=== PATIENT | female | born 1960 | race Two or more races ===

== ENCOUNTER 2021-02-17 18:20 | Emergency (ER) | payer SELFPAY ==
[~2021-02-17] VITALS: Ht 154.9 cm; Wt 90.7 kg
[2021-02-17] MEDS ORDERED: KETOROLAC TROMETH 30 MG/ML 1ML VIAL IV ONE (20:30)
[2021-02-17 20:53] LABS: Basophils # (auto) 0 10 ^3/uL (0-0.2); Basophils % (auto) 0.7 % (0.0-2.0); Eosinophils # (auto) 0.2 10 ^3/uL (0-0.8); Eosinophils % (auto) 3.2 % (0.0-7.0); Hematocrit 40.2 % (36.0-46.0); Hemoglobin 13.8 g/dL (12.2-16.2); Lymphocytes # (auto) 2.3 10 ^3/uL (0.4-5.4); Lymphocytes % (auto) 43.5 % (10.0-50.0); Mean Corpuscular Hgb Conc. 34.2 g/dL (32.0-36.0); Mean Corpuscular Volume 96.5 fL (80.0-100.0); Monocytes # (auto) 0.2 10 ^3/uL (0-1.3); Monocytes % (auto) 4.5 % (0.0-12.0); Neutrophils # (auto) 2.6 10 ^3/uL (1.6-8.6); Neutrophils % (auto) 48.1 % (37.0-80.0); Nucleated Red Blood Cells % 0.1 %; Platelet Count (auto) 274 10^3/uL (140-450); Red Blood Cells 4.16 10^6/uL (4.0-5.20); Red Cell Distribution Width 12.5 % (11.8-14.3); White Blood Cell 5.4 10^3/uL (4.4-10.8)
[2021-02-17 21:18] LABS: Potassium 4.2 mmol/L (3.5-5.1)
[2021-02-17 21:25] LABS: Albumin 3.5 g/dL (3.4-5.0); BUN/Creatinine Ratio 19.2; Bilirubin, Total 0.6 mg/dL (0.2-1.0); Calcium 9.5 mg/dL (8.5-10.1); Total Protein 7.1 g/dL (6.4-8.2)
[2021-02-17 22:30] VITALS: BP 141/75
== END 2021-02-17 22:36 | disposition home or self-care (01) ==
LOC: EDBD 18:20 → ER 18:20
DX: R07.89 Other chest pain (principal); M62.838 Other muscle spasm; E11.9 Type 2 diabetes mellitus without complications; I10 Essential (primary) hypertension; Z87.891 Personal history of nicotine dependence; V49.9XXA Car occupant (driver) (passenger) injured in unspecified traffic accident, initial encounter; Y93.89 Activity, other specified; Y92.89 Other specified places as the place of occurrence of the external cause; Y99.8 Other external cause status
CPT/HCPCS: 36415; 70450; 71046; 72100; 72125; 80053; 85025; 96374; 99285; J1885

== ENCOUNTER 2025-05-21 12:32 | Inpatient (IN) | payer BC, OTHER ==
[~2025-05-21] VITALS: Ht 160 cm; Wt 73.2 kg
--- NOTE | 2025-05-21 13:19 | ED.PDOC ---
GI ASSESSMENT HPI Comments 64 y.o female with PMHx of HTN, DM, TIA, and asthma, presents to the ED for a chief complaint of diffused abdominal pain associated with diarrhea that started 6 days ago. Patient reports pain is sharp, constant, and rating a 7/10 on the pain scale. Patient was seen at PCP 3 days ago, was prescribed a 3 day antibiotic regime, Zofran and Imodium but states no symptom relief. Patient denies any melena, bloody stool, fever, chills, nausea, vomiting. Patient denies any substance, alcohol or tobacco use. Upon ED arrival, patient's blood pressure read 75/47. Chief Complaint: Abdominal Pain Time Seen by MD: 13:00 Primary Care Provider: RENNY Villegas Notes: Nurses Notes, Medications, Allergies Allergies: Coded Allergies: NO KNOWN ALLERGIES (Unverified , 02/17/21) Information Source: Patient Mode of Arrival: Ambulatory Timing: Days (6) Duration: Since onset Quality: Sharp Vomitus: None Stool: Loose, Watery Severity: Moderate Recent: None Recent Hx of: None Pain Location: Diffuse Modifying Factors: Nothing Associated sign and symptoms: Diarrhea, Abdominal Pain Past Medical History PAST MEDICAL HISTORY: Asthma, DM, HTN, TIA Surgical History: Cholecystectomy Surgical History (Other): right shoulder and bilateral knee replacement WINDOW CASER 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: No 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 History Family History Family History: Family hx of Cancer (father of colon cancer ) Social History Smoker: Quit Greater Than 1 Year Alcohol: Denies ETOH Use Drugs: Denies Drug Use Lives In: Home Constitutional: denies: chills, diaphoresis, fatigue, fever, malaise, sweats, weakness, others EENTM: denies: blurred vision, double vision, ear bleeding, ear discharge, ear drainage, ear pain, ear ringing, eye pain, eye redness, hearing loss, mouth pain, mouth swelling, nasal discharge, nose bleeding, nose congestion, nose pain, photophobia, tearing, throat pain, throat swelling, voice changes, others Respiratory: denies: cough, hemoptysis, orthopnea, SOB at rest, shortness of breath, SOB with excertion, stridor, wheezing, others Cardiovascular: denies: chest pain, dizzy spells, diaphoresis, Dyspnea on exertion, edema, irregular heart beat, left arm pain, lightheadedness, palpitations, PND, syncope, others Gastrointestinal: reports: abdominal pain, diarrhea; denies: abdomen distended, blood streaked bowels, constipated, dysphagia, difficulty swallowing, hematemesis, melena, nausea, poor appetite, poor fluid intake, rectal bleeding, rectal pain, vomiting, others Genitourinary: denies: abnormal vagina bleeding, burning, dyspareunia, dysuria, flank pain, frequency, hematuria, incontinence, pain, , vagina dis charge, urgency, others Neurological: denies: dizziness, fainting, headache, left sided numbness, left sided weakness, numbness, paresthesia, pre-existing deficit, right sided numbness, right sided weakness, seizure, speech problems, tingling, tremors, weakness, others Musculoskeletal: denies: back pain, gout, joint pain, joint swelling, muscle pain, muscle stiffness, neck pain, others Integumetry: denies: bruises, change in color, change in hair/nails, dryness, laceration, lesions, lumps, rash, wounds, others Allergic/Immunocompromised: denies: Difficulty Healing, Frequent Infections, Hives, Itching, others Hematologic/Lymphatic: denies: anemia, blood clots, easy bleeding, easy bruising, swollen glands, others Endocrine: denies: excessive hunger, excessive sweating, excessive thirst, excessive urination, flushing, intolerance to cold, intolerance to heat, unexplained weight gain, unexplained weight loss, others Psychiatric: denies: anxiety, bipolar disorder, depression, hopeless, panic disorder, schizophrenia, sleepless, suicidal, others All Other Systems: Reviewed and Negative Physical Exam General Appearance: Moderate Distress HEENT: Normal ENT Inspection, Pharynx Normal, TMs Normal Neck: Full Range of Motion, Non-Tender, Normal, Normal Inspection Respiratory: Chest Non-Tender, Lungs Clear, No Accessory Muscle Use, No Respiratory Distress, Normal Breath Sounds Cardiovascular: No Edema, No JVD, No Murmur, No Gallop, Normal Peripheral Pulses, Regular Rate/Rhythm Breast Exam: Deferred Gastrointestinal: Diffuse, No Organomegaly, No Pulsatile Mass, Normal Bowel Sounds, Soft, Tenderness Genitalia: Deferred Pelvic: Deferred Rectal: Deferred Extremities: No calf tenderness, Normal capillary refill, No pedal edema Musculoskeletal : Apperance: Normal Neurologic: Alert, loan supervisor II-XII nml as Tested, No Motor Deficits, Normal Affect, Normal Mood, No Sensory Deficits Cerebellar Function: Normal Reflexes: Normal Skin: Dry, Normal Color, Warm Lymphatic: No Adenopathy Was a procedure done? Was a procedure done?: No GI differential Dx Differential Diagnosis: Esophagitis, Gastroenteritis, Inflammatory BD, Dehydration, Electrolyte Imbalance, Food Poisoning, Parasitic, Viral X-Ray, Labs, Meds, VS Vital Signs Date Time Temp Pulse Resp B/P (MAP) Pulse Ox O2 Delivery O2 Flow Rate FiO2 05/21/25 16:34 73 12 150/70 05/21/25 16:04 70 13 150/70 05/21/25 16:00 72 05/21/25 15:31 72 17 145/59 (87) 100 05/21/25 13:47 79 13 94 Room Air* 0 21 05/21/25 13:46 98.4 82 17 123/53 (76) 92 98.4 05/21/25 12:47 86 05/21/25 12:40 98.3 87 18 76/43 (54) 97 98.3 75/47 (56) Lab Test 05/21/25 13:43 Range/Units White Blood Count 6.0 4.4-10.8 10^3/uL Red Blood Count 4.63 4.0-5.20 10^6/uL Hemoglobin 13.9 12.2-16.2 g/dL Hematocrit 41.8 36.0-46.0 % Mean Corpuscular Volume 90.3 80.0-100.0 fL Mean Corpuscular Hemoglobin 30.1 28.0-32.0 pg Mean Corpuscular Hemoglobin Concent 33.3 32.0-36.0 g/dL Red Cell Distribution Width 13.9 11.8-14.3 % Platelet Count 274 140-450 10^3/uL Mean Platelet Volume 8.0 6.9-10.8 fL Neutrophils (%) (Auto) 72.3 37.0-80.0 % Lymphocytes (%) (Auto) 20.1 10.0-50.0 % Monocytes (%) (Auto) 5.0 0.0-12.0 % Eosinophils (%) (Auto) 2.3 0.0-7.0 % Basophils (%) (Auto) 0.3 0.0-2.0 % Neutrophils # (Auto) 4.3 1.6-8.6 10 ^3/uL Lymphocytes # (Auto) 1.2 0.4-5.4 10 ^3/uL Monocytes # (Auto) 0.3 0-1.3 10 ^3/uL Eosinophils # (Auto) 0.1 0-0.8 10 ^3/uL Basophils # (Auto) 0 0-0.2 10 ^3/uL Nucleated Red Blood Cells 0.0 % Sodium Level 135 L 136-145 mmol/L Potassium Level 3.6 3.5-5.1 mmol/L Chloride Level 101 98-107 mmol/L Carbon Dioxide Level 26 20-31 mmol/L Anion Gap 8 5-15 Blood Urea Nitrogen 32 H 9-23 mg/dL Creatinine 1.51 H 0.550-1.02 mg/dL Glomerular Filtration Rate Calc 38 >90 mL/min BUN/Creatinine Ratio 21.2 H 10.0-20.0 Serum Glucose 187 H 74-106 mg/dL Lactic Acid Level 0.9 0.4-2.0 mmol/L Calcium Level 9.6 8.7-10.4 mg/dL Total Bilirubin 0.8 0.2-1.0 mg/dL Aspartate Amino Transferase (AST) 51 H 13-40 U/L Alanine Aminotransferase (ALT) 58 H 7-40 U/L Alkaline Phosphatase 156 H 46-116 U/L Total Protein 7.9 5.7-8.2 g/dL Albumin 4.8 3.2-4.8 g/dL Lipase 35 12-53 U/L Current Medications Medications (Trade) Dose Ordered Sig/Chaitanya Route Start Time Stop Time Status Last Admin Sodium Chloride 1,000 ml @ 1,000 mls/hr Q1H ONCE IVB 05/21/25 13:15 05/21/25 14:14 DC 05/21/25 13:38 Morphine Sulfate 4 mg ONCE ONCE IV 05/21/25 16:00 05/21/25 16:01 DC 05/21/25 16:04 Ondansetron HCl (Zofran) 4 mg ONCE ONCE IV 05/21/25 16:00 05/21/25 16:01 DC 05/21/25 16:04 CAT scan of the abdomen and pelvis shows: IMPRESSION: Dilated CBD measuring 11 mm with abrupt termination near the periampullary region as well as stranding surrounding the pancreatic head. Recommend GI consultation and MRCP to further evaluate. Stranding surrounding the pancreatic head. Correlate for pancreatitis. Cholecystectomy. Colonic diverticular disease. A 2 mm nonobstructing right renal calculus. The patient was given morphine 4 mg IV push for the pain The patient was given Zofran 4 mg IV push for the nausea The patient was given 1 L bolus of normal saline The lipase is within normal limits The lactic acid level is negative The patient's CBC shows no sign of any abnormalities The BUN is 32 and a creatinine of 1.51 The patient is being admitted at this time Images Reviewed?: Images reviewed and evaluated by me Time of 1ST Reevaluation: 13:19 Reevaluation 1ST: Unchanged Patient Education/Counseling: Diagnosis, Treatment, Prognosis Family Education/Counseling: No Family Present SEPSIS Sepsis Screen Date sepsis recognized/suspect: May 21, 2025 Time Sepsis recognized/suspect: 1239 Recent Procedure: No On Antibiotic Therapy: No Respiratory Rate >20: No Heart Rate >90: No Temp<36 C (96.8 F) or >38.3 C: No SBP <90 or MAP <65 mmHG: Yes New Acute Mental Status Change: No Is the patient on CPAP, BIPAP,: No Physician Orders Urinalysis (05/21/25 13:14) Ct Ab Pel Wo Con-No Oral Or Iv (05/21/25 13:14) Heplock Iv (05/21/25 13:14) City Maintenance Manager (05/21/25 13:14) Blood Pressure (05/21/25 13:14) Pulse Oximetry (05/21/25 13:14) Electrocardigram (05/21/25 13:14) Blood Culture (05/21/25 13:16) Vital Signs Date Time Temp Pulse Resp B/P (MAP) Pulse Ox O2 Delivery O2 Flow Rate FiO2 05/21/25 16:34 73 12 150/70 05/21/25 16:04 70 13 150/70 05/21/25 16:00 72 05/21/25 15:31 72 17 145/59 (87) 100 05/21/25 13:47 79 13 94 Room Air* 0 21 05/21/25 13:46 98.4 82 17 123/53 (76) 92 98.4 05/21/25 12:47 86 05/21/25 12:40 98.3 87 18 76/43 (54) 97 98.3 75/47 (56) Laboratory Tests Test 05/21/25 13:43 Lactic Acid Level 0.9 mmol/L (0.4-2.0) White Blood Count 6.0 10^3/uL (4.4-10.8) Medications Medications Dose Ordered Sig/Chaitanya Route Start Time Stop Time Status Last Admin Dose Admin Morphine Sulfate 4 mg ONCE ONCE IV 05/21/25 16:00 05/21/25 16:01 DC 05/21/25 16:04 Ondansetron HCl 4 mg ONCE ONCE IV 05/21/25 16:00 05/21/25 16:01 DC 05/21/25 16:04 Sodium Chloride 1,000 ml @ 1,000 mls/hr Q1H ONCE IVB 05/21/25 13:15 05/21/25 14:14 DC 05/21/25 13:38 Departure 1 Departure Time of Disposition: 17:45 Impression: Primary Impression: Intractable abdominal pain Disposition: ADMITTED INPATIENT Admit to: Med Surg Condition: Fair Critical Care Note Critical Care Time?: No Stability Stability form required: Yes Unstable for transfer: ED Physician Assesment (Clinical assesment) Heart Score Heart Score: Heart Score Response (Comments) Value History N/A 0 EKG N/A 0 Age N/A 0 Risk Factors N/A 0 Troponin N/A 0 Total 0 I personally scribed for CYNTHIA LOJA MD ([email or web address]) on 05/21/25 at 13:19. Elec tronically submitted by Mary Summers ([facility]). CYNTHIA LOJA MD May 21, 2025 13:19
[2025-05-21] MEDS: SODIUM CHLORIDE 0.9% 1,000 ML IVB ONE (13:38)
[2025-05-21 13:47] VITALS: PULSE 79; RESP 13; O2SAT 94
[2025-05-21 14:07] LABS: Hematocrit 41.8 % (36.0-46.0); Hemoglobin 13.9 g/dL (12.2-16.2); Mean Corpuscular Hemoglobin 30.1 pg (28.0-32.0); Mean Corpuscular Volume 90.3 fL (80.0-100.0); Nucleated Red Blood Cells % 0.0 %
[2025-05-21 14:21] LABS: Albumin 4.8 g/dL (3.2-4.8); Anion Gap 8 (5-15); BUN/Creatinine Ratio 21.2 (10.0-20.0); Calcium 9.6 mg/dL (8.7-10.4); Carbon Dioxide 26 mmol/L (20-31); Chloride 101 mmol/L (98-107); Lipase 35 U/L (12-53); Potassium 3.6 mmol/L (3.5-5.1); Total Protein 7.9 g/dL (5.7-8.2)
[2025-05-21 14:22] LABS: Bilirubin, Total 0.8 mg/dL (0.2-1.0)
[2025-05-21 14:24] LABS: Alanine Aminotransferase 58 U/L (7-40); Alkaline Phosphatase 156 U/L (46-116); Blood Urea Nitrogen 32 mg/dL (9-23); Glucose 187 mg/dL (74-106); Sodium 135 mmol/L (136-145)
--- NOTE | 2025-05-21 15:35 | DVH ---
Indication: PAIN Technique: CT axial images of the abdomen and pelvis are obtained without contrast. Coronal and sagit frances reformats were obtained. Radiation Dose Information: CTDI volume is 16.17 mGy. Dose-length product is 900.52 mGy*cm Comparison: None FINDINGS: There is limited interpretation of the abdomen and pelvis without administration of intravenous contr ast. Lung bases demonstrate no pleural effusion. Adrenal glands, spleen unremarkable in shape. Mild stranding surrounding the pancreatic head.m cholec ystectomy dilated common bile duct measuring 11 mm. Liver unremarkable in shape. No hydronephrosis. Nonobstructing right renal calculus measuring 2 mm. Small hiatal hernia. Stomach partially distended. Small bowel loops are normal in caliber. Colonic diverticular disease. Moderate volume stool in the colon. Normal appendix. Abdominal aortic atherosclerotic disease. Bladder partially distended. No free pelvic fluid. No ingu inal lymphadenopathy. [id number] bilateral sacroiliac degenerative joint disease. Posterior intrapedicular fixation of the L3 and L4 vertebral bodies. Moderate to advanced thoracolu mbar degenerative disc disease. Left lower quadrant pain pump device. IMPRESSION: Dilated CBD measuring 11 mm with abrupt termination near the periampullary region as well as strandin g surrounding the pancreatic head. Recommend GI consultation and MRCP to further evaluate. Stranding surrounding the pancreatic head. Correlate for pancreatitis. Cholecystectomy. Colonic diverticular disease. A 2 mm nonobstructing right renal calculus. Other findings as described.
[2025-05-21] MEDS: ONDANSETRON HCL 4 MG/2 ML VIAL IV ONE (16:04)
[2025-05-21] MEDS: MORPHINE SULFATE 4 MG/ML SYR/VIAL IV ONE (16:04)
--- NOTE | 2025-05-21 18:35 | ECG ---
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
[2025-05-21] MEDS ORDERED: DEXTROSE (50%) 50ML SYRG IV PRN (19:30)
[2025-05-21 20:00] VITALS: O2SAT 94
[2025-05-21] MEDS: SODIUM CHLORIDE 0.9% 1,000 ML IV ONE (20:00)
[2025-05-21] MEDS: MORPHINE SULFATE INJ 2 MG/ml SYRG IV PRN (21:52)
[2025-05-21] MEDS: ONDANSETRON HCL 4 MG/2 ML VIAL IV PRN (21:52)
[2025-05-21 23:51] VITALS: BP 154/72; PULSE 73; RESP 18; TEMP 97.5; O2SAT 99
[2025-05-21] MEDS: ACCU-CHEK COMFORT CURVE STRIP VI SCH (23:54)
[2025-05-21] MEDS: InsuLIN REG 1unit/0.01ml Soln (100units/ml) SC SCH (23:55)
[2025-05-22] VITALS (8 sets, daily range): BP systolic 111–154; BP diastolic 51–78; PULSE 60–78; RESP 14–18; TEMP 96.7–98.4; O2SAT 94–99
[2025-05-22] MEDS ORDERED: HYDR25TA5 GT (03:12)
[2025-05-22] MEDS ORDERED: HYDR-4798 PO (03:12)
[2025-05-22] MEDS ORDERED: HYDR25TA87 PO (03:12)
[2025-05-22] MEDS ORDERED: LISI-275 PO (03:12)
[2025-05-22] MEDS ORDERED: INSU100I28 IJ (03:12)
[2025-05-22] MEDS ORDERED: INSU100I33 SC (03:12)
--- NOTE | 2025-05-22 03:58 | DVHHP2 ---
History of Present Illness Reason for Visit: Abdominal pain History of Present Illness 64-year-old female presents for evaluation of abdominal pain. Patient reports a six day history of diffuse abdominal pain. She states being seen by her primary care provider three days ago and was given antibiotics in medication for the anahi n. She states his symptoms continued. She reports diarrhea with nausea and vomiting. Past Medical History Hypertension, diabetes mellitus, asthma Past Surgical History Cholecystectomy, bilateral knee replacement Family History Cancer Smoke: Quit ALCOHOL: none Drugs: None Lives: with Family Review of Systems Review of Systems Review of systems are currently negative otherwise addressed in HPI. Allergies: Coded Allergies: NO KNOWN ALLERGIES (Unverified , 02/17/21) Medications Current Medications Medications Dose Ordered Sig/Chaitanya Route Start Time Stop Time Status Last Admin Dose Admin Diagnostic Test (Pha) 1 strip Q6HR 05/22/25 00:00 05/21/25 23:54 1 STRIP Insulin Human Regular Q6HR SC 05/22/25 00:00 05/21/25 23:55 2 UNITS Dextrose 50 ml UD PRN IV 05/21/25 19:30 Ondansetron HCl 4 mg Q4HP PRN IV 05/21/25 19:30 05/21/25 21:52 4 MG Morphine Sulfate 2 mg Q4HPRN PRN IV 05/21/25 19:30 05/21/25 21:52 2 MG Exam Vital Signs Vital Signs Date Time Temp Pulse Resp B/P (MAP) Pulse Ox O2 Delivery O2 Flow Rate FiO2 05/22/25 00:51 97.3 78 18 154/72 (99) 98 97.3 05/21/25 23:51 Nasal Cannula* 2 28 Exam Gen: 64-year-old female in mild distress Skin: Warm, dry, normal color and texture, no rash. HEENT: Normocephalic atraumatic, mucous membranes moist and pink. Neck: Cervical and supraclavicular nodes normal without enlargement, trachea is midline, thyroid gland is normal without masses. Pulmonary: Clear to auscultation and percussion bilaterally. Cardiac: Regular rate and rhythm. No murmur Abdomen: Soft, diffuse tenderness, nondistended, bowel sounds present all 4 quadrants, no guarding, no rigidity, no organomegaly. Extremities: No cyanosis, clubbing, no edema Neuro: Cranial nerves II through XII grossly intact, normal affect and speech, no focal motor deficits. Labs/Xrays ORDERING PHYSICIAN: CYNTHIA LOJA MD PROCEDURE(s): ABPL - CT AB PEL WO CON-NO ORAL OR IV REASON: PAIN ORDER NUMBER(s): [id number], ACCESSION NUMBER(s): [id number] Indication: PAIN Technique: CT axial images of the abdomen and pelvis are obtained without contrast. Coronal and sagittal reformats were obtained. Radiation Dose Information: CTDI volume is 16.17 mGy. Dose-length product is 900.52 mGy*cm Comparison: None FINDINGS: There is limited interpretation of the abdomen and pelvis without administration of intravenous contrast. Lung bases demonstrate no pleural effusion. Adrenal glands, spleen unremarkable in shape. Mild stranding surrounding the pancreatic head.m cholecystectomy dilated common bile duct measuring 11 mm. Liver unremarkable in shape. No hydronephrosis. Nonobstructing right renal calculus measuring 2 mm. Small hiatal hernia. Stomach partially distended. Small bowel loops are normal in caliber. Colonic diverticular disease. Moderate volume stool in the colon. Normal appendix. Abdominal aortic atherosclerotic disease. Bladder partially distended. No free pelvic fluid. No inguinal lymphadenopathy. [id number] bilateral sacroiliac degenerative joint disease. Posterior intrapedicular fixation of the L3 and L4 vertebral bodies. Moderate to advanced thoracolumbar degenerative disc disease. Left lower quadrant pain pump device. IMPRESSION: Dilated CBD measuring 11 mm with abrupt termination near the periampullary region as well as stranding surrounding the pancreatic head. Recommend GI consultation and MRCP to further evaluate. Stranding surrounding the pancreatic head. Correlate for pancreatitis. Cholecystectomy. Colonic diverticular disease. A 2 mm nonobstructing right renal calculus. Other findings as described. Labs Test 05/21/25 13:43 Range/Units White Blood Count 6.0 4.4-10.8 10^3/uL Red Blood Count 4.63 4.0-5.20 10^6/uL Hemoglobin 13.9 12.2-16.2 g/dL Hematocrit 41.8 36.0-46.0 % Mean Corpuscular Volume 90.3 80.0-100.0 fL Mean Corpuscular Hemoglobin 30.1 28.0-32.0 pg Mean Corpuscular Hemoglobin Concent 33.3 32.0-36.0 g/dL Red Cell Distribution Width 13.9 11.8-14.3 % Platelet Count 274 140-450 10^3/uL Mean Platelet Volume 8.0 6.9-10.8 fL Neutrophils (%) (Auto) 72.3 37.0-80.0 % Lymphocytes (%) (Auto) 20.1 10.0-50.0 % Monocytes (%) (Auto) 5.0 0.0-12.0 % Eosinophils (%) (Auto) 2.3 0.0-7.0 % Basophils (%) (Auto) 0.3 0.0-2.0 % Neutrophils # (Auto) 4.3 1.6-8.6 10 ^3/uL Lymphocytes # (Auto) 1.2 0.4-5.4 10 ^3/uL Monocytes # (Auto) 0.3 0-1.3 10 ^3/uL Eosinophils # (Auto) 0.1 0-0.8 10 ^3/uL Basophils # (Auto) 0 0-0.2 10 ^3/uL Nucleated Red Blood Cells 0.0 % Sodium Level 135 L 136-145 mmol/L Potassium Level 3.6 3.5-5.1 mmol/L Chloride Level 101 98-107 mmol/L Carbon Dioxide Level 26 20-31 mmol/L Anion Gap 8 5-15 Blood Urea Nitrogen 32 H 9-23 mg/dL Creatinine 1.51 H 0.550-1.02 mg/dL Glomerular Filtration Rate Calc 38 >90 mL/min BUN/Creatinine Ratio 21.2 H 10.0-20.0 Serum Glucose 187 H 74-106 mg/dL Lactic Acid Level 0.9 0.4-2.0 mmol/L Calcium Level 9.6 8.7-10.4 mg/dL Total Bilirubin 0.8 0.2-1.0 mg/dL Aspartate Amino Transferase (AST) 51 H 13-40 U/L Alanine Aminotransferase (ALT) 58 H 7-40 U/L Alkaline Phosphatase 156 H 46-116 U/L Total Protein 7.9 5.7-8.2 g/dL Albumin 4.8 3.2-4.8 g/dL Lipase 35 12-53 U/L SEPSIS Sepsis Screen Date sepsis recognized/suspect: May 21, 2025 Time Sepsis recognized/suspect: 1828 Recent Procedure: No On Antibiotic Therapy: No Respiratory Rate >20: No Heart Rate >90: No Temp<36 C (96.8 F) or >38.3 C: No SBP <90 or MAP <65 mmHG: No New Acute Mental Status Change: No Is the patient on CPAP, BIPAP,: No Physician Orders * Dietary Consult (05/22/25 03:04) Vital Signs Date Time Temp Pulse Resp B/P (MAP) Pulse Ox O2 Delivery O2 Flow Rate FiO2 05/22/25 00:51 97.3 78 18 154/72 (99) 98 97.3 05/21/25 23:51 73 18 99 Nasal Cannula* 2 28 05/21/25 23:51 97.5 73 18 154/72 (99) 99 97.5 05/21/25 22:22 74 13 156/63 05/21/25 22:00 71 11 156/63 (94) 100 05/21/25 21:52 70 13 137/54 05/21/25 20:00 98.2 73 13 158/69 (98) 99 98.2 Medications Medications Dose Ordered Sig/Chaitanya Route Start Time Stop Time Status Last Admin Dose Admin Diagnostic Test (Pha) 1 strip Q6HR 05/22/25 00:00 05/21/25 23:54 1 STRIP Insulin Human Regular Q6HR SC 05/22/25 00:00 05/21/25 23:55 2 UNITS Morphine Sulfate 2 mg Q4HPRN PRN IV 05/21/25 19:30 05/21/25 21:52 2 MG Morphine Sulfate 4 mg ONCE ONCE IV 05/21/25 16:00 05/21/25 16:01 DC 05/21/25 16:04 4 MG Ondansetron HCl 4 mg ONCE ONCE IV 05/21/25 16:00 05/21/25 16:01 DC 05/21/25 16:04 4 MG Ondansetron HCl 4 mg Q4HP PRN IV 05/21/25 19:30 05/21/25 21:52 4 MG Sodium Chloride 1,000 ml @ 75 mls/hr [id number] ONCE IV 05/21/25 19:30 05/22/25 08:49 05/21/25 20:00 75 MLS/HR Assessment/Plan Assessment/Plan Assessment Acute abdominal pain Transaminitis Acute kidney injury Hypertension Diabetes mellitus Plan Admit the patient to [facility] to the hospitalist GI consult MRCP pending Pain management Maintenance IV fluids Continue treatment per orders. Plan discussed with: Patient My Orders Orders - MARY JANE MAHONEY Procedure Category Date Status Time Sodium Chloride 0.9% PHA 05/21/25 In Process 19:30 Mrcp Mri MRI 05/21/25 Logged 19:21 Glucose Blood PHA 05/22/25 In Process (Accu-Chek Comfort 00:00 Insulin R (Human) PHA 05/22/25 In Process (Insulin R) 00:00 Dextrose 50% Syringe PHA 05/21/25 In Process 19:30 Admit ADMIT 05/21/25 Transmitted 19:21 Ondansetron Hcl PHA 05/21/25 In Process (Zofran) 19:30 Complete Blood Count LAB 05/22/25 Logged 04:00 Comprehensive LAB 05/22/25 Logged Metabolic Panel 04:00 Npo (Nothing By DIET 05/22/25 Transmitted Mouth) Diet Breakfast Condition: Stable LAURENT 05/21/25 In Process 19:21 Bedrest With Bathroom LAURENT 05/21/25 In Process Privileg 19:21 Morphine Sulfate PHA 05/21/25 In Process Injection 19:30 * Gi Dvh Band Aid Machine Operator CONS 05/21/25 Transmitted 19:21 * Dietary Consult CONS 05/22/25 Transmitted 03:04 Date of Service: May 21, 2025 Billing Provider: MARY JANE MAHONEY Common Visit Codes: [id number] INP/OBS CARE (MOD) MARY JANE MAHONEY May 22, 2025 03:58
[2025-05-22 06:50] LABS: Hematocrit 36.5 % (36.0-46.0); Hemoglobin 12.5 g/dL (12.2-16.2); Mean Corpuscular Hemoglobin 30.4 pg (28.0-32.0); Mean Corpuscular Volume 89.1 fL (80.0-100.0); Nucleated Red Blood Cells % 0.1 %
[2025-05-22 07:12] LABS: Calcium 9.5 mg/dL (8.7-10.4); Carbon Dioxide 28 mmol/L (20-31); Chloride 106 mmol/L (98-107)
[2025-05-22 07:13] LABS: Albumin 4.0 g/dL (3.2-4.8); Anion Gap 7 (5-15); BUN/Creatinine Ratio 24.7 (10.0-20.0); Bilirubin, Total 0.6 mg/dL (0.2-1.0); Potassium 3.7 mmol/L (3.5-5.1); Sodium 141 mmol/L (136-145); Total Protein 6.6 g/dL (5.7-8.2)
[2025-05-22 07:14] LABS: Alanine Aminotransferase 43 U/L (7-40); Alkaline Phosphatase 132 U/L (46-116); Blood Urea Nitrogen 24 mg/dL (9-23); Glucose 118 mg/dL (74-106)
--- NOTE | 2025-05-22 12:37 | DVHINCON2 ---
GI Consult Consult Note GI consult note Date of Consultation: 05/22/2025 Chief Complaint: Abdominal pain Referring Physician: Olaf VEGA H&P: 64-year-old female presents to the ER with complains of abdominal pain, which is in a generalized area, started one-week ago and getting worse at this time. Patient was seen by PCP and started on antibiotics, Zofran and Imodium which did not help with the symptoms. Patient also has nausea vomiting, denies hematemesis. Having watery stool about 4-5 episodes every day. No melena or red blood in stool Patient is status post cholecystectomy 12-14 years ago at [facility] Diagnosed with factor five Leiden but not on any blood thinners Patient has chronic back pain has a pain pump for Dilaudid, and has concerns if this needs to be turned off for the MRI Past Medical History: Hypertension, diabetes mellitus, asthma Past Surgical History: Cholecystectomy, bilateral knee replacement Social History: NO smoking, drinking ETOH and use of illegal drugs. Family History: Noncontributory Review of Systems: Constitutional: no fever, chill, weight loss HEENT: no eye pain, no hearing loss, no oral lesion, no scleral icterus Heart: no chest pain, no chest pressure Lung: no cough, no dyspnea with exertion Abdomen: see HPI Physical exam: General: NAD, AAOX3 Chest: lung mack clear to auscultation Heart: RRR, no murmur Abdomen: Moderate generalized abdominal tenderness to palpation, +BS Labs: Labs Test 05/22/25 12:08 05/22/25 06:20 05/21/25 13:43 Range/Units POC Glucose 151 H 70-106 mg/dl White Blood Count 5.8 4.4-10.8 10^3/uL Red Blood Count 4.10 4.0-5.20 10^6/uL Hemoglobin 12.5 12.2-16.2 g/dL Hematocrit 36.5 # 36.0-46.0 % Mean Corpuscular Volume 89.1 80.0-100.0 fL Mean Corpuscular Hemoglobin 30.4 28.0-32.0 pg Mean Corpuscular Hemoglobin Concent 34.2 32.0-36.0 g/dL Red Cell Distribution Width 13.6 11.8-14.3 % Platelet Count 241 140-450 10^3/uL Mean Platelet Volume 7.6 6.9-10.8 fL Neutrophils (%) (Auto) 53.2 37.0-80.0 % Lymphocytes (%) (Auto) 35.9 10.0-50.0 % Monocytes (%) (Auto) 6.9 0.0-12.0 % Eosinophils (%) (Auto) 3.7 0.0-7.0 % Basophils (%) (Auto) 0.3 0.0-2.0 % Neutrophils # (Auto) 3.1 1.6-8.6 10 ^3/uL Lymphocytes # (Auto) 2.1 0.4-5.4 10 ^3/uL Monocytes # (Auto) 0.4 0-1.3 10 ^3/uL Eosinophils # (Auto) 0.2 0-0.8 10 ^3/uL Basophils # (Auto) 0 0-0.2 10 ^3/uL Nucleated Red Blood Cells 0.1 % Sodium Level 141 # 136-145 mmol/L Potassium Level 3.7 3.5-5.1 mmol/L Chloride Level 106 98-107 mmol/L Carbon Dioxide Level 28 20-31 mmol/L Anion Gap 7 5-15 Blood Urea Nitrogen 24 H 9-23 mg/dL Creatinine 0.97 # 0.550-1.02 mg/dL Glomerular Filtration Rate Calc 65 >90 mL/min BUN/Creatinine Ratio 24.7 H 10.0-20.0 Serum Glucose 118 H 74-106 mg/dL Calcium Level 9.5 8.7-10.4 mg/dL Total Bilirubin 0.6 0.2-1.0 mg/dL Aspartate Amino Transferase (AST) 40 13-40 U/L Alanine Aminotransferase (ALT) 43 H 7-40 U/L Alkaline Phosphatase 132 H 46-116 U/L Total Protein 6.6 5.7-8.2 g/dL Albumin 4.0 3.2-4.8 g/dL Lactic Acid Level 0.9 0.4-2.0 mmol/L Lipase 35 12-53 U/L Imaging: CT abdomen pelvis IMPRESSION: Dilated CBD measuring 11 mm with abrupt termination near the periampullary region as well as stranding surrounding the pancreatic head. Recommend GI consultation and MRCP to further evaluate. Stranding surrounding the pancreatic head. Correlate for pancreatitis. Cholecystectomy. Colonic diverticular disease. A 2 mm nonobstructing right renal calculus. Other findings as described. Assessment: Abdominal pain Dilated CBD Diarrhea Plan: Discussed with Dr. Valderrama MRI MRCP discussed extensively with patient was reluctant to do this test, patient we will go ahead and attempt to do the MRCP Hepatitis panel, CA 19-9 Clear liquid diet after MRI completed Stool studies Discussed plan with patient and RN Thank you for this consult Date of Service: May 22, 2025 Billing Provider: MARGARET COCHRAN Common Visit Codes: CONSULT ONLY Consultation Codes: [id number] CONSULT <60MIN MARGARET COCHRAN May 22, 2025 12:37
--- NOTE | 2025-05-22 13:20 | DVH ---
MRI MRCP MRIMagnetic Resonance Magnetic Resonance HISTORY: abd. pain COMPARISON: 05/21 PROCEDURE: Multiplanar multisequence MRI images were obtained of the abdomen without intravenous cont rast Additional MIPS were obtained of the biliary system. FINDINGS: Bile ducts: -Intrahepatic ducts: Mildly-dilated. -Extrahepatic ducts: Mildly-dilated. -Common bile duct: 1.3 cm -Filling defects: Small filling defect in the distal CBD could be sludge or a small stone. -Stricture: None. Gallbladder: Absent. Pancreas: Pancreatic duct: Mild ductal dilatation. Lesions: None. Liver: Signal intensity: Homogenous. Contour: Smooth. Size: Normal. Lesions: No focal liver lesion. ADDITIONAL FINDINGS: Lung base: Normal. Pancreas: Unremarkable however the pancreatic head is indistinct. Spleen:Normal. Bowel: Normal. Normal appendix. Adrenal glands:Normal. Kidneys and ureters:Normal. Lymph nodes:Normal. Peritoneum:Normal. Vessels: Normal. Abdominal wall: Normal. Bone: No aggressive bone lesions. Lumbar spinal hardware is seen. IMPRESSION: Small filling defect in the distal CBD could be sludge or a small stone (choledocholithiasis). Clinic al correlation recommended.
--- NOTE | 2025-05-22 18:20 | DVHPN2 ---
Subjective Minimal pain this morning Reviewed: H&P, Labs Changes from previous H/P or p: No Changes Objective Vitals Vital Signs Date Time Temp Pulse Resp B/P (MAP) Pulse Ox O2 Delivery O2 Flow Rate FiO2 05/22/25 17:00 98.4 61 16 128/51 (76) 97 98.4 05/22/25 08:00 Nasal Cannula* 2 28 Intake/Output Intake and Output 05/22/25 07:00 Intake Total 1225 ml Balance 1225 ml Intake Oral 0 ml IV Total 1225 ml # Voids 1 General Appearance: Alert, Oriented X3, Cooperative HEENT: Atraumatic Lungs: Clear to auscultation Cardiovascular: Regular rate, Normal S1, Normal S2 Abdomen: Normal bowel sounds Medications Current Medications Medications Dose Ordered Sig/Chaitanya Route Start Time Stop Time Status Last Admin Dose Admin Diagnostic Test (Pha) 1 strip Q6HR 05/22/25 00:00 05/22/25 17:33 1 STRIP Insulin Human Regular Q6HR SC 05/22/25 00:00 05/22/25 12:16 2 UNITS Dextrose 50 ml UD PRN IV 05/21/25 19:30 Ondansetron HCl 4 mg Q4HP PRN IV 05/21/25 19:30 05/21/25 21:52 4 MG Hydromorphone HCl 1 mg Q2HPRN PRN IV 05/22/25 14:45 Laboratory Results Laboratory Tests 05/22/25 06:20 Chemistry Test 05/22/25 06:20 Albumin 4.0 g/dL (3.2-4.8) Calcium Level 9.5 mg/dL (8.7-10.4) Total Protein 6.6 g/dL (5.7-8.2) LFT Test 05/22/25 06:20 Alanine Aminotransferase (ALT) 43 U/L (7-40) H Alkaline Phosphatase 132 U/L (46-116) H Aspartate Amino Transferase (AST) 40 U/L (13-40) Total Bilirubin 0.6 mg/dL (0.2-1.0) Microbiology Microbiology Date/Time Source Procedure Growth Status 05/22/25 12:30 Stool Stool Culture - Preliminary Resulted 05/22/25 12:30 Stool Shiga Toxin I & II - Final Resulted 05/21/25 13:43 Blood Blood Culture - Preliminary NO GROWTH AFTER 24 HOURS OF INCUBATION. Resulted Assessment/Plan Assessment/Plan Acute abdominal pain Transaminitis Acute kidney injury Hypertension Diabetes mellitus Going for MRCP IV dilaudid GI consulted IVF Plan discussed with: Patient My Orders Orders - KIARA BAXTER MD Procedure Category Date Status Time Hydromorphone PHA 05/22/25 In Process Injection (Dilaudid 14:45 Date of Service: May 22, 2025 Billing Provider: KIARA BAXTER MD Common Visit Codes: [id number] INP/OBS CARE(HIGH) KIARA BAXTER MD May 22, 2025 18:20
[2025-05-22] MEDS: HYDROmorphone HCL 2 MG/ML VL/or syr IV PRN (19:05)
[2025-05-23] VITALS (7 sets, daily range): BP systolic 111–152; BP diastolic 41–76; PULSE 65–98; RESP 12–18; TEMP 96.5–98.1; O2SAT 90–99
[2025-05-23 11:07] LABS: Hepatitis A Total Antibody Positive (Negative); Hepatitis B Surface Antigen Negative (Negative); Hepatitis C Antibody Negative (Negative)
--- NOTE | 2025-05-23 15:08 | DVHPN2 ---
Progress Note - Dictate Date Seen: May 23, 2025 Medical Necessity Reason Pt with a Central, PICC or Fol: No Subjective No new complaints Patient is currently NPO and would like to drink some liquids vital signs Vital Sign Date Time Temp Pulse Resp B/P (MAP) Pulse Ox O2 Delivery O2 Flow Rate FiO2 05/23/25 12:12 75 14 127/44 05/23/25 09:00 97.8 98 97.8 05/23/25 08:00 Nasal Cannula* 2 28 Total Intake and Output 05/22/25 05/22/25 05/23/25 15:00 23:00 07:00 Intake Total 350 ml 0 ml Balance 350 ml 0 ml medications Current Medications Medications Dose Ordered Sig/Chaitanya Route Start Time Stop Time Status Last Admin Dose Admin Diagnostic Test (Pha) 1 strip Q6HR 05/22/25 00:00 05/23/25 11:26 1 STRIP Insulin Human Regular Q6HR SC 05/22/25 00:00 05/22/25 12:16 2 UNITS Dextrose 50 ml UD PRN IV 05/21/25 19:30 Ondansetron HCl 4 mg Q4HP PRN IV 05/21/25 19:30 05/21/25 21:52 4 MG Hydromorphone HCl 1 mg Q2HPRN PRN IV 05/22/25 14:45 05/23/25 11:42 1 MG objective General Appearance: Alert, Oriented X3, Cooperative HEENT: Atraumatic Lungs: Clear to auscultation Cardiovascular: Regular rate, Normal S1, Normal S2 Abdomen: Normal bowel sounds laboratory and microbiology Laboratory Tests 05/22/25 06:20 Test 05/22/25 06:20 Range/Units Serum Glucose 118 H 74-106 mg/dL Problems(with codes): (1) Elevated liver enzymes (2) Choledocholithiasis (3) Intractable abdominal pain Prognosis Plan Start clear liquid diet advance to full liquid Patient is awaiting transfer to higher level of care for ERCP with CBD stone extraction Monitor labs in a.m. Dietary Evaluation Review Comments: CCHO-60 texture as tolerated diet Expected Outcomes/Goals: controlled DM, free from GI symptoms, gradual wt loss Plan discussed with: Patient, Other (Nurse) EVE WEST MD May 23, 2025 15:08
[2025-05-23] MEDS: SODIUM CHLORIDE 0.9% 1,000 ML IV SCH (15:51)
--- NOTE | 2025-05-23 17:04 | DVHPN2 ---
Subjective Minimal pain this morning Reviewed: H&P, Labs Changes from previous H/P or p: No Changes Objective Vitals Vital Signs Date Time Temp Pulse Resp B/P (MAP) Pulse Ox O2 Delivery O2 Flow Rate FiO2 05/23/25 16:27 79 20 124/52 05/23/25 13:00 98.0 93 98.0 05/23/25 08:00 Nasal Cannula* 2 28 Intake/Output Intake and Output 05/23/25 07:00 Intake Total 350 ml Balance 350 ml Intake Oral 350 ml # Voids 6 General Appearance: Alert, Oriented X3, Cooperative HEENT: Atraumatic Lungs: Clear to auscultation Cardiovascular: Regular rate, Normal S1, Normal S2 Abdomen: Normal bowel sounds Medications Current Medications Medications Dose Ordered Sig/Chaitanya Route Start Time Stop Time Status Last Admin Dose Admin Diagnostic Test (Pha) 1 strip Q6HR 05/22/25 00:00 05/23/25 11:26 1 STRIP Insulin Human Regular Q6HR SC 05/22/25 00:00 05/22/25 12:16 2 UNITS Dextrose 50 ml UD PRN IV 05/21/25 19:30 Ondansetron HCl 4 mg Q4HP PRN IV 05/21/25 19:30 05/21/25 21:52 4 MG Hydromorphone HCl 1 mg Q2HPRN PRN IV 05/22/25 14:45 05/23/25 16:27 1 MG Sodium Chloride 1,000 ml @ 125 mls/hr Q8H IV 05/23/25 15:30 05/23/25 15:51 125 MLS/HR Laboratory Results Laboratory Tests 05/22/25 06:20 Microbiology Microbiology Date/Time Source Procedure Growth Status 05/22/25 12:30 Stool Stool Culture - Preliminary Resulted 05/22/25 12:30 Stool Shiga Toxin I & II - Final Resulted 05/21/25 13:43 Blood Blood Culture - Preliminary NO GROWTH AFTER 48 HOURS OF INCUBATION. Resulted Assessment/Plan Assessment/Plan Acute abdominal pain Transaminitis Acute kidney injury Hypertension Diabetes mellitus MRCP showed choledocholithiasis IV dilaudid GI consulted>recommended higher level of care for ERCP IVF Accepted at [facility], pending bed Plan discussed with: Patient My Orders Orders - KIARA BAXTER MD Procedure Category Date Status Time Sodium Chloride 0.9% PHA 05/23/25 In Process 15:30 Discharge DISCHARGE 05/23/25 Transmitted 15:20 Date of Service: May 23, 2025 Billing Provider: KIARA BAXTER MD Common Visit Codes: [id number] INP/OBS CARE(HIGH) KIARA BAXTER MD May 23, 2025 17:04
[2025-05-24 01:00] VITALS: BP 124/61; PULSE 75; RESP 18; TEMP 98.4; O2SAT 92
[2025-05-24 02:03] VITALS: BP 156/72; PULSE 83; RESP 16
== END 2025-05-24 02:25 | disposition short-term general hospital (02) | DRG 444 ==
LOC: ER 12:32 → OVERFLOW 19:21 → EAST 23:20
PROVIDERS: ADMIT Hospitalist; ATTEND Hospitalist
DX: K80.50 Calculus of bile duct without cholangitis or cholecystitis without obstruction (principal); N17.0 Acute kidney failure with tubular necrosis; E11.9 Type 2 diabetes mellitus without complications; I10 Essential (primary) hypertension; J45.909 Unspecified asthma, uncomplicated; Z96.653 Presence of artificial knee joint, bilateral; Z87.891 Personal history of nicotine dependence; Z86.73 Personal history of transient ischemic attack (TIA), and cerebral infarction without residual deficits; Z80.0 Family history of malignant neoplasm of digestive organs; Z90.49 Acquired absence of other specified parts of digestive tract
CPT/HCPCS: 36415; 74176; 74181; 80053; 82962; 83605; 83690; 85025; 86301; 86704; 86706; 86708; 86803; 87040; 87045; 87340; 87427; 87493; 93005; G0378; J1815; J2405

== ENCOUNTER → 2025-06-01 | Outpatient (CLI) | payer OTHER ==
[~2025-06-01] MED LIST: HYDR-4798 PO; HYDR25TA5 GT; HYDR25TA87 PO; INSU100I28 IJ; INSU100I33 SC; LISI-275 PO
[2025-06-01 10:35] LABS: Hematocrit 34.8 % (36.0-46.0); Hemoglobin 11.8 g/dL (12.2-16.2); Mean Corpuscular Hemoglobin 30.3 pg (28.0-32.0); Mean Corpuscular Volume 89.9 fL (80.0-100.0); Nucleated Red Blood Cells % 0.1 %
[2025-06-01 10:58] LABS: Alanine Aminotransferase 25 U/L (7-40); Albumin 4.0 g/dL (3.2-4.8); Anion Gap 8 (5-15); BUN/Creatinine Ratio 11.7 (10.0-20.0); Blood Urea Nitrogen 12 mg/dL (9-23); Calcium 10.1 mg/dL (8.7-10.4); Carbon Dioxide 30 mmol/L (20-31); Chloride 99 mmol/L (98-107); Cholesterol 165 mg/dL (< 200); HDL Cholesterol 48 mg/dL (40-59); Magnesium 1.7 mg/dL (1.6-2.6); Potassium 4.5 mmol/L (3.5-5.1); Sodium 137 mmol/L (136-145); Total Protein 6.8 g/dL (5.7-8.2)
[2025-06-01 10:59] LABS: Alkaline Phosphatase 150 U/L (46-116); Bilirubin, Total 0.6 mg/dL (0.2-1.0); Glucose 332 mg/dL (74-106); Triglycerides 210 mg/dL (< 150)
[2025-06-01 11:01] LABS: Iron 97.0 ug/dL (50-170)
[2025-06-01 11:04] LABS: Total Iron Binding Capacity 252.0 ug/dL (250-425)
[2025-06-01 11:09] LABS: Uric Acid 5.4 mg/dL (3.1-7.8)
[2025-06-01 11:16] LABS: Urine Protein, UAD 1+ (Negative)
== END | disposition home or self-care (01) ==
LOC: LAB 10:15
PROVIDERS: ATTEND Family Medicine
DX: E11.40 Type 2 diabetes mellitus with diabetic neuropathy, unspecified (principal); E78.00 Pure hypercholesterolemia, unspecified; E55.9 Vitamin D deficiency, unspecified; N20.0 Calculus of kidney; K76.0 Fatty (change of) liver, not elsewhere classified
CPT/HCPCS: 36415; 80053; 80061; 81001; 82306; 82607; 83036; 83540; 83550; 83735; 84443; 84550; 85025; 87086

== ENCOUNTER 2025-07-12 10:07 | Outpatient (CLI) | payer OTHER ==
[2025-07-12 11:05] LABS: Alanine Aminotransferase 14 U/L (7-40); Albumin 4.1 g/dL (3.2-4.8); Anion Gap 8 (5-15); BUN/Creatinine Ratio 17.6 (10.0-20.0); Blood Urea Nitrogen 19 mg/dL (9-23); Calcium 9.5 mg/dL (8.7-10.4); Carbon Dioxide 29 mmol/L (20-31); Chloride 100 mmol/L (98-107); Potassium 4.4 mmol/L (3.5-5.1); Sodium 137 mmol/L (136-145); Total Protein 7.3 g/dL (5.7-8.2)
[2025-07-12 11:06] LABS: Alkaline Phosphatase 128 U/L (46-116); Bilirubin, Total 0.6 mg/dL (0.2-1.0); Glucose 332 mg/dL (74-106)
== END 2025-07-12 17:00 | disposition home or self-care (01) ==
LOC: LAB 10:07
PROVIDERS: ATTEND Physician Assistant
DX: N20.0 Calculus of kidney (principal); Z96.89 Presence of other specified functional implants
CPT/HCPCS: 36415; 80053

== ENCOUNTER 2025-09-03 08:48 | Emergency (ER) | payer OTHER ==
[~2025-09-03] VITALS: Ht 160 cm; Wt 75.8 kg
[2025-09-03] MEDS: HYDROmorphone HCL 2 MG/ML VL/or syr IM ONE (10:15)
--- NOTE | 2025-09-03 10:33 | DVH ---
EXAM: CT CT AB PEL WO CON-NO ORAL OR IV HISTORY: L flank pain COMPARISON: CT CT AB PEL WO CON-NO ORAL OR IV on DOS: 05/21/25 TECHNIQUE: Helical CT images of the abdomen and pelvis were performed without IV contrast. Sagittal a nd coronal reformatted images were obtained. This CT exam was performed using one or more of the foll owing dose reduction techniques: Automated exposure control, adjustment of the mA and/or kv according to patient size, or the use of iterative reconstruction techniques. Radiation Dose: Abdomen/Pelvis: CTDIvol 19.16 mGy, DLP 1009.82 mGy*cm. FINDINGS: CT abdomen: There is mild scarring in the lung bases. The heart is borderline enlarged. There are cor onary artery calcifications. There is an ASD closure device. There is a small sliding hiatal hernia. The gallbladder is surgically absent. There is a nonobstructing right renal inferior pole 3.5 mm martin culus. There is left renal superior pole cortical scarring. The noncontrast liver, spleen, pancreas, and adrenal glands are unremarkable. No abdominal aortic aneurysm. There is a left upper quadrant spl enule. CT pelvis: No abnormal bowel dilatation, free air, or free fluid. The appendix is not dilated. There may be early urinary bladder vaginal prolapse.. There is a spinal cord stimulator with implanted phil ce in the left anterior pelvic subcutaneous fat. There is advanced lumbar degenerative disc disease a nd facet arthropathy with moderate spinal canal stenosis at L1-L2; multilevel significant neural fora ladonna stenosis bilaterally. There are postoperative changes of L3-L4 laminectomy and posterior spina l fusion with pedicle screws and rods. IMPRESSION: 1. Coronary artery disease. 2. Nonobstructing right nephrolithiasis. No evidence of urinary tract obstruction bilaterally. 3. Postoperative changes of ASD closure, cholecystectomy, lumbar spine surgery, and spinal cord stimu lator. 4. Possible early urinary bladder vaginal prolapse. Correlate with physical examination findings. 5. No evidence of bowel obstruction, acute appendicitis, or other acute process in the abdomen or pel vis.
[2025-09-03 10:50] LABS: Hematocrit 39.2 % (36.0-46.0); Hemoglobin 13.1 g/dL (12.2-16.2); Mean Corpuscular Hemoglobin 29.6 pg (28.0-32.0); Mean Corpuscular Volume 88.7 fL (80.0-100.0); Nucleated Red Blood Cells % 0.0 %
[2025-09-03 11:00] LABS: Chloride 100 mmol/L (98-107); Potassium 3.6 mmol/L (3.5-5.1); Sodium 140 mmol/L (136-145)
[2025-09-03 11:01] LABS: Anion Gap 12 (5-15); Carbon Dioxide 28 mmol/L (20-31)
[2025-09-03 11:02] LABS: Calcium 9.9 mg/dL (8.7-10.4)
[2025-09-03 11:06] LABS: BUN/Creatinine Ratio 13.5 (10.0-20.0); Blood Urea Nitrogen 15 mg/dL (9-23)
[2025-09-03 11:07] LABS: Glucose 276 mg/dL (74-106); Lipase 36 U/L (12-53)
[2025-09-03 11:36] LABS: Urine Protein, UAD 2+ (Negative)
[2025-09-03] MEDS: cefTRIAXone SOD 1,000 MG VL IM ONE (12:10)
[2025-09-03] MEDS ORDERED: BACDST PO (12:13)
[2025-09-03] MEDS ORDERED: LIDO5DIS21 TOP (12:13)
--- NOTE | 2025-09-03 12:13 | ED.PDOC ---
Back pain HPI HPI Comments This is a pleasant 65-year-old female with a pertinent MHx of chronic back pain and back surgeries that presents with atraumatic left lower back pain Patient describes the pain as a rubber band sensation pulling on her back when standing upright causing heard a walk hunched over She is currently using a cane for assistive support Patient admits the pain has worsened after she switched pain management doctors. She is currently on Dilaudid but the dosage is minimal compared to the previous prescription by the former pain management doctor. The patient reports that her current pain management doctor does not support the use of pain pumps and has prescribed her [place] instead which she can not take because it causes severe constipation. She has requested an increase in her dosage from her current doctor but feel the adjustments have not been sufficient. Denies history of chronic steroid use or history of osteoporosis Denies history of cancer Denies fevers chills night sweats nausea vomiting unintentional weight loss Denies abdominal tearing pain Denies syncope Denies urinary changes or urinary incontinence Denies numbness tingling of the groin her inner thigh Denies previous back procedures or surgeries Chief Complaint: Back Pain Time Seen by MD: 08:58 Primary Care Provider: RENNY Reviewed Notes: Nurses Notes, Medications, Allergies Allergies: Coded Allergies: NO KNOWN ALLERGIES (Unverified , 02/17/21) Home Meds Active Scripts Lidocaine (LIDODERM 5% TOPICAL PATCH) 1 Patch Ph, 1 PATCH TOP DAILY for 30 Days, #30 PATCH 0 Refills Prov:ANTHONY FINNEY NP 09/03/25 Sulfamethoxazole W/Trimethopri (Bactrim Ds Tablet) 1 Tab Tb, 1 TAB PO BID for 3 Days, #6 TAB 0 Refills Prov:ANTHONY FINNEY NP 09/03/25 Reported Medications Hydralazine HCl (Hydralazine HCl) 25 Mg Tab, PO, TAB 05/22/25 Hctz (Hydrochlorothiazide) 25 Mg Tab, 25 MG GT, TAB 05/22/25 Lisinopril (Lisinopril) 5 Mg Tab, 5 MG PO DAILY for 30 Days, MG 05/22/25 Insulin Degludec (Tresiba) 100 Unit/Ml Inj, 100 UNIT SC, INJ 05/22/25 Insulin Aspart (Novolog) 100 Unit/Ml Inj, 100 UNIT IJ, INJ 05/22/25 Hydrocodone-Acetaminophen (Hydrocodone Bitartrate/AC 10-325 mg) 1 Tab Tab, 1 TAB PO, TAB 05/22/25 Information Source: Patient Mode of Arrival: Ambulatory Past Medical History PAST MEDICAL HISTORY: Asthma, DM, HTN, TIA Surgical History: Cholecystectomy SPACE SCIENCES DIRECTOR History: No Pertinent SPACE SCIENCES DIRECTOR History Family History Family History: Family hx of Cancer Social History Smoker: Quit Greater Than 1 Year Alcohol: Denies ETOH Use Drugs: Denies Drug Use Lives In: Home All Other Systems: Reviewed and Negative (Per HPI) Physical Exam General Appearance: No Apparent Distress, Normal HEENT: Normal ENT Inspection, Pharynx Normal, TMs Normal Neck: Full Range of Motion, Non-Tender, Normal, Normal Inspection Respiratory: Chest Non-Tender, Lungs Clear, No Accessory Muscle Use, No Respiratory Distress, Normal Breath Sounds Cardiovascular: No Edema, No JVD, No Murmur, No Gallop, Normal Peripheral Pulses, Regular Rate/Rhythm Breast Exam: Deferred Gastrointestinal: No Organomegaly, Non Tender, No Pulsatile Mass, Normal Bowel Sounds, Soft Genitalia: Deferred Pelvic: Deferred Rectal: Deferred Extremities: No calf tenderness, Normal capillary refill, Normal inspection, Normal range of motion, Non-tender, No pedal edema Musculoskeletal : Apperance: Normal Neurologic: Alert, complaint coordinator II-XII nml as Tested, No Motor Deficits, Normal Affect, Normal Mood, No Sensory Deficits Cerebellar Function: Normal Reflexes: Normal Skin: Dry, Normal Color, Warm Lymphatic: No Adenopathy Was a procedure done? Was a procedure done?: No Images 1 - Localized TTP Back Pain Differential Dx Differential Diagnosis: Appendicitis, Fracture, Musculoskeletal Pain, Pancreatits, Strain, Urinary Obstruction, Urolithiasis, Other X-Ray, Labs, Meds, VS Vital Signs Date Time Temp Pulse Resp B/P (MAP) Pulse Ox O2 Delivery O2 Flow Rate FiO2 09/03/25 12:19 98.7 98 17 148/72 (97) 98 98.7 09/03/25 12:19 98 16 98 Room Air 09/03/25 11:02 78 16 139/78 09/03/25 10:15 99 17 138/77 09/03/25 08:50 98.5 100 18 166/68 98 98.5 Lab Test 09/03/25 10:26 09/03/25 09:49 Range/Units White Blood Count 6.2 4.4-10.8 10^3/uL Red Blood Count 4.42 4.0-5.20 10^6/uL Hemoglobin 13.1 12.2-16.2 g/dL Hematocrit 39.2 36.0-46.0 % Mean Corpuscular Volume 88.7 80.0-100.0 fL Mean Corpuscular Hemoglobin 29.6 28.0-32.0 pg Mean Corpuscular Hemoglobin Concent 33.3 32.0-36.0 g/dL Red Cell Distribution Width 13.1 11.8-14.3 % Platelet Count 280 140-450 10^3/uL Mean Platelet Volume 7.6 6.9-10.8 fL Neutrophils (%) (Auto) 67.5 37.0-80.0 % Lymphocytes (%) (Auto) 26.2 10.0-50.0 % Monocytes (%) (Auto) 5.2 0.0-12.0 % Eosinophils (%) (Auto) 0.7 0.0-7.0 % Basophils (%) (Auto) 0.4 0.0-2.0 % Neutrophils # (Auto) 4.2 1.6-8.6 10 ^3/uL Lymphocytes # (Auto) 1.6 0.4-5.4 10 ^3/uL Monocytes # (Auto) 0.3 0-1.3 10 ^3/uL Eosinophils # (Auto) 0 0-0.8 10 ^3/uL Basophils # (Auto) 0 0-0.2 10 ^3/uL Nucleated Red Blood Cells 0.0 % Sodium Level 140 136-145 mmol/L Potassium Level 3.6 3.5-5.1 mmol/L Chloride Level 100 98-107 mmol/L Carbon Dioxide Level 28 20-31 mmol/L Anion Gap 12 5-15 Blood Urea Nitrogen 15 9-23 mg/dL Creatinine 1.11 H 0.550-1.02 mg/dL Glomerular Filtration Rate Calc 55 >90 mL/min BUN/Creatinine Ratio 13.5 10.0-20.0 Serum Glucose 276 H 74-106 mg/dL Calcium Level 9.9 8.7-10.4 mg/dL Lipase 36 12-53 U/L Urine Color Yellow Yellow Urine Clarity Turbid H Clear Urine pH 6.0 5.0-9.0 Urine Specific [place] 1.013 1.001-1.035 Urine Protein 2+ H Negative Urine Ketones Trace Negative Urine Blood Trace H Negative /uL Urine Nitrite Negative Negative Urine Bilirubin Negative Negative Urine Urobilinogen Normal Negative mg/dL Urine Leukocyte Esterase 3+ Negative /uL Urine RBC 5 0 - 4 /hpf Urine Microscopic WBC 52 H 0-5 /HPF Urine Squamous Epithelial Cells Mod <5 /hpf Urine Bacteria Few H None Seen /hpf Urine Hyaline Casts Mod 0 - 2 /lpf Urine Mucus Few None Seen Urine Glucose 3+ H Normal mg/dL Current Medications Medications (Trade) Dose Ordered Sig/Chaitanya Route Start Time Stop Time Status Last Admin Hydromorphone HCl (Dilaudid Injection) 1 mg ONCE ONCE IM 09/03/25 10:00 09/03/25 10:10 DC 09/03/25 10:15 Ceftriaxone Sodium (Rocephin) 1,000 mg ONCE ONCE IM 09/03/25 12:15 09/03/25 12:16 DC 09/03/25 12:10 X-Ray, Labs, Meds, VS Comment 65-year-old with a chronic back pain presents with atraumatic back pain that is on adequately controlled with a pain pump. Patient arrives alert and oriented, ABC's intact, afebrile, vital signs stable, saturating well in room air Peripheral IV insertion+ labs were ordered. CBC was ordered to exclude anemia, blood loss, or infection. BMP was ordered to exclude electrolyte abnormalities, renal failure, dehydration, hyperglycemia Lipase was ordered to rule out pancreatitis Urinalysis was ordered to rule out UTI or hematuria. Abdomen and pelvis was ordered History and lab findings consistent with UTI Vital signs stable patient stable Patient tolerating p.o. fluids Encouraged parents to increase water intake Practice good personal hygiene. Always wipe from front to back Drink plenty of fluids to help flush bacteria out of the urinary tract Empty bladder completely as soon as you feel the urge Prescribed p.o. antibiotics for presentation of symptoms Complete course of antibiotic therapy even if symptoms improve or resolve. There should be no leftover antibiotics as this can lead to antibiotic resistant bacteria and even worse infection. Parents verbalized understanding. Potential side effects discussed with patient including abdominal pain, nausea, diarrhea. On reevaluation, patient had symptomatic improvement. Patient is stable for discharge at this time. External notes reviewed. Test results and diagnostic imaging interpreted. All diagnostic findings, discharge care, education and instructions provided Follow-up with PCP in 2 to 3 days Patient verbalized understanding and agreed to treatment plan Vital signs stable, afebrile, no acute distress noted Patient ambulatory with strong steady gait Advised to return precautions for any new or worsening symptoms, return to ER immediately for re-evaluation Patient is aware that the purpose of this visit was for an acute medical emergency requiring emergent stabilization. Chronic conditions, including malignancies have not been ruled out. Patient is instructed to follow up with PCP as directed and discharge instructions for continued care and workup. If unable to arrange follow-up, patient is to return to the emergency department for reassessment. Patient (parent or legal guardian if applicable) was given verbal and written discharge instructions and acknowledges understanding. Additional MDM Review of External, Non-ED records: External records reviewed. Discussion with independent historian (EMS, family) history obtained from the patient/parents (if applicable) at bedside Chronic conditions affecting care: None Social determinants of health affecting care: None Consideration of admission (observation or admission): I considered escalation of care to admission for this patient, however given the reassuring workup, the patient is safe for outpatient management. Discussion with the Radiology: No Tests considered but not performed: Prescription medication considered but not given: 12 lead EKG interpretation: Time of 1ST Reevaluation: 12:11 Reevaluation 1ST: Improved Patient Education/Counseling: Diagnosis, Treatment Family Education/Counseling: Diagnosis, Treatment SEPSIS Sepsis Screen Date sepsis recognized/suspect: Sep 03, 2025 Time Sepsis recognized/suspect: 851 Recent Procedure: No On Antibiotic Therapy: No Respiratory Rate >20: No Heart Rate >90: Yes Temp<36 C (96.8 F) or >38.3 C: No SBP <90 or MAP <65 mmHG: No New Acute Mental Status Change: No Is the patient on CPAP, BIPAP,: No Physician Orders Ct Ab Pel Wo Con-No Oral Or Iv (09/03/25 09:49) Vital Signs Date Time Temp Pulse Resp B/P (MAP) Pulse Ox O2 Delivery O2 Flow Rate FiO2 09/03/25 12:19 98.7 98 17 148/72 (97) 98 98.7 09/03/25 12:19 98 16 98 Room Air 09/03/25 11:02 78 16 139/78 09/03/25 10:15 99 17 138/77 09/03/25 08:50 98.5 100 18 166/68 98 98.5 Laboratory Tests Test 09/03/25 10:26 White Blood Count 6.2 10^3/uL (4.4-10.8) Medications Medications Dose Ordered Sig/Chaitanya Route Start Time Stop Time Status Last Admin Dose Admin Ceftriaxone Sodium 1,000 mg ONCE ONCE IM 09/03/25 12:15 09/03/25 12:16 DC 09/03/25 12:10 Hydromorphone HCl 1 mg ONCE ONCE IM 09/03/25 10:00 09/03/25 10:10 DC 09/03/25 10:15 Departure 1 Departure Time of Disposition: 12:12 Impression: Primary Impression: Nephrolithiasis Additional Impressions: Vaginal prolapse UTI (urinary tract infection) Qualified Codes: N30.00 - Acute cystitis without hematuria Back pain Qualified Codes: M54.50 - Low back pain, unspecified Disposition: HOME / SELF CARE / HOMELESS Condition: Fair Additional Instructions: Discharge Note: Continue on your medications. Do not drive when taking narcotics. Drink plenty of fluids. Follow up with your primary Dr. Take your prescriptions as ordered. If your condition becomes worse call and follow up with your primary DrBull for instructions or return to the ER if needed. Thank you for visiting [facility]. e-Prescriptions Lidocaine (LIDODERM 5% TOPICAL PATCH) 1 Patch Ph 1 PATCH TOP DAILY for 30 Days, #30 PATCH 0 Refills Prov: ANTHONY FINNEY NP 09/03/25 Sulfamethoxazole W/Trimethopri (Bactrim Ds Tablet) 1 Tab Tb 1 TAB PO BID for 3 Days, #6 TAB 0 Refills Prov: ANTHONY FINNEY NP 09/03/25 Critical Care Note Critical Care Time?: No Stability Stability form required: No Heart Score Heart Score: Heart Score Response (Comments) Value History N/A 0 EKG N/A 0 Age N/A 0 Risk Factors N/A 0 Troponin N/A 0 Total 0 ANTHONY FINNEY NP Sep 03, 2025 12:13
[2025-09-03 12:19] VITALS: BP 148/72; PULSE 98; RESP 16; TEMP 98.7; O2SAT 98
== END 2025-09-03 12:22 | disposition home or self-care (01) ==
LOC: ER 08:48
DX: N39.0 Urinary tract infection, site not specified (principal); N20.0 Calculus of kidney; N81.10 Cystocele, unspecified; M54.50 Low back pain, unspecified; J45.909 Unspecified asthma, uncomplicated; E11.9 Type 2 diabetes mellitus without complications; I10 Essential (primary) hypertension; Z79.899 Other long term (current) drug therapy; Z87.74 Personal history of (corrected) congenital malformations of heart and circulatory system; Z86.73 Personal history of transient ischemic attack (TIA), and cerebral infarction without residual deficits; Z90.49 Acquired absence of other specified parts of digestive tract
CPT/HCPCS: 36415; 74176; 80048; 81001; 83690; 85025; 96372; 99285; J0696; J1171

== ENCOUNTER 2025-09-15 18:15 | Inpatient (IN) | payer OTHER ==
[~2025-09-15] VITALS: Ht 160 cm; Wt 72.0 kg
[~2025-09-15 18:15] MED LIST changes: +BACDST PO; +LIDO5DIS21 TOP
--- NOTE | 2025-09-15 19:39 | ED.PDOC ---
SR. MANAGER HPI Comments HPI: 65-year-old female came to the ER for pelvic pain. She has been having lower abdominal pain for the past month worsened today. Claims she feels like her "uterus is swollen" Patient has yet to see her esthetician/spa coordinator regarding this issue. States also that she has been constipated for the past month, and has been having on/off fever, vaginal spotting since yesterday. Patient has sjust finished a course of antibiotics 3 days ago. Patient is a poor informant Patient discharged her last June 10, 2025 diagnosed with Acute abdominal pain Sepsis due to choledocholithiasis Transaminitis Acute kidney injury due to ATN Hypertension Diabetes mellitus Past Medical History: UTI, diabetes, hypertension Surgical History: Back surgery, cholecystectomy, carpal tunnel surgery, knee surgery, shoulder surgery Family History: Denies Personal and Social History: Denies HPI: Poor Historian. REVIEW OF SYSTEMS: CONSTITUTIONAL: Denies acute: fever, diaphoresis, chills, generalized weakness. HEAD: Denies acute: headache, photophobia Eyes: Denies acute: Double vision, vision loss, eye pain, eye discharge. EARS: Denies acute: tinnitus, hearing loss, ear discharge, ear pain, THROAT: Denies acute: sore throat, swelling, difficulty swallowing , pain with swallowing, change in voice. NECK: Denies acute: neck pain, neck swelling, stiff neck. HEART: Denies acute : chest pain, palpitations, LUNGS: Denies acute: SOB, wheezing, cough, hemoptysis ABDOMEN: Denies acute: Nausea, Vomiting, diarrhea, melena , hematemesis, hematochezia SKIN: Denies acute: rash, redness, lesions, itchiness. EXTREMITIES: Denies acute: calf pain, numbness, tingling, weakness, denies pain in extremity. Denies acute: Low back pain. Neuro: Denies acute: focal neurological deficit, motor or sensory focal neurological deficit, tremors, seizure like activity, confusion, dizziness, change in mental status, loss of bowel or bladder function, cauda equina like symptoms. : Denies acute: dysuria, hematuria, flank pain, increase in urinary frequency. PSYCH: Denies acute: hallucination, suicidal ideation, homicidal ideation. FEMALE: Denies acute: abnormal vaginal bleeding, foul odor, unusual discharge. PHYSICAL EXAM: General: ----moderate----acute distress, awake and alert. Head: normocephalic, atraumatic. No raccoon's eyes, no atwood sign. Neck: supple, trachea is midline, no swelling. Throat: Normal phonation. Eyes:, no erythema, no purulent discharge, no proptosis, no icterus. Heart: regular rate, regular rhythm, no significant murmur appreciated. Lungs: no apparent respiratory distress, Able to speak in full sentences. No wheezing, no rhonchi, no crackles. No stridors Clear to auscultation bilaterally. Abdomen: Suprapubic tender to palpation, non distended, soft, no guarding, no rebound, + bowel sounds. Pelvic examination in the presence of a pattern hand: Normal-appearing external female genitalia. No protrusion or prolapse. No apparent lesions. Neuro: Awake, Alert, oriented to name, self, situation, follows commands GCS=15. Speech is normal. Skin: no petechia, no purpura, no cyanosis, non-pale, not jaundice. Lower extremities: --no - Pitting edema no deformity, no focal swelling, no calf TTP. Makes eye contact. moves all four extremities. Face: no apparent facial droop. ED COURSE: DISCLAIMER: This medical document was created using an electronic medical record system with voice recognition software and computerized dictation system. Although this document has been carefully reviewed, there might still be some phonetic and typographical errors. Occasional wrong-word or "sound-alike" substitutions may have occurred due to the inherent limitations of voice recognition software. These areas are purely typographical due to imperfections of the software programs and do not reflect any compromise in the patient's medical care. Please read the chart carefully and recognize, using context, where these substitutions have occurred. Chief Complaint: Pelvic Pain Time Seen by MD: 19:39 Reviewed Notes: Nurses Notes, Allergies Allergies: Coded Allergies: NO KNOWN ALLERGIES (Unverified , 02/17/21) Home Meds Active Scripts Lidocaine (LIDODERM 5% TOPICAL PATCH) 1 Patch Ph, 1 PATCH TOP DAILY for 30 Days, #30 PATCH 0 Refills Prov:ANTHONY FINNEY SUCTION [employer]ATE [employer]ER CLEANER 09/03/25 Sulfamethoxazole W/Trimethopri (Bactrim Ds Tablet) 1 Tab Tb, 1 TAB PO BID for 3 Days, #6 TAB 0 Refills Prov:SHARMIN,ANTHONY Moran [employer] CLE[employer]ER 09/03/25 Reported Medications Hydralazine HCl (Hydralazine HCl) 25 Mg Tab, PO, TAB 05/22/25 Hctz (Hydrochlorothiazide) 25 Mg Tab, 25 MG GT, TAB 05/22/25 Lisinopril (Lisinopril) 5 Mg Tab, 5 MG PO DAILY for 30 Days, MG 05/22/25 Insulin Degludec (Tresiba) 100 Unit/Ml Inj, 100 UNIT SC, INJ 05/22/25 Insulin Aspart (Novolog) 100 Unit/Ml Inj, 100 UNIT IJ, INJ 05/22/25 Hydrocodone-Acetaminophen (Hydrocodone Bitartrate/AC 10-325 mg) 1 Tab Tab, 1 TAB PO, TAB 05/22/25 Information Source: Patient, Relative (Sibling) Mode of Arrival: Ambulatory Past Medical History PAST MEDICAL HISTORY: Asthma, DM, HTN, TIA Surgical History: Cholecystectomy ACQUISITIONS LIBRARIAN History: No Pertinent ACQUISITIONS LIBRARIAN History Family History Family History: Family hx of Cancer Social History Smoker: Quit Greater Than 1 Year Alcohol: Denies ETOH Use Drugs: Denies Drug Use Lives In: Home Was a procedure done? Was a procedure done?: No X-Ray, Labs, Meds, VS Vital Signs Date Time Temp Pulse Resp B/P (MAP) Pulse Ox O2 Delivery O2 Flow Rate FiO2 09/15/25 18:17 97.9 73 18 168/89 97 97.9 Lab Test 09/15/25 19:38 Range/Units White Blood Count 5.0 4.4-10.8 10^3/uL Red Blood Count 3.65 L 4.0-5.20 10^6/uL Hemoglobin 11.1 L 12.2-16.2 g/dL Hematocrit 32.5 L 36.0-46.0 % Mean Corpuscular Volume 89.2 80.0-100.0 fL Mean Corpuscular Hemoglobin 30.4 28.0-32.0 pg Mean Corpuscular Hemoglobin Concent 34.0 32.0-36.0 g/dL Red Cell Distribution Width 13.4 11.8-14.3 % Platelet Count 265 140-450 10^3/uL Mean Platelet Volume 7.3 6.9-10.8 fL Neutrophils (%) (Auto) 57.1 37.0-80.0 % Lymphocytes (%) (Auto) 34.4 10.0-50.0 % Monocytes (%) (Auto) 4.3 0.0-12.0 % Eosinophils (%) (Auto) 3.7 0.0-7.0 % Basophils (%) (Auto) 0.5 0.0-2.0 % Neutrophils # (Auto) 2.8 1.6-8.6 10 ^3/uL Lymphocytes # (Auto) 1.7 0.4-5.4 10 ^3/uL Monocytes # (Auto) 0.2 0-1.3 10 ^3/uL Eosinophils # (Auto) 0.2 0-0.8 10 ^3/uL Basophils # (Auto) 0 0-0.2 10 ^3/uL Nucleated Red Blood Cells 0.0 % Sodium Level 143 136-145 mmol/L Potassium Level 5.2 H 3.5-5.1 mmol/L Chloride Level 110 H 98-107 mmol/L Carbon Dioxide Level 32 H 20-31 mmol/L Anion Gap 1 L 5-15 Blood Urea Nitrogen 14 9-23 mg/dL Creatinine 1.08 H 0.550-1.02 mg/dL Glomerular Filtration Rate Calc 57 >90 mL/min BUN/Creatinine Ratio 13.0 10.0-20.0 Serum Glucose 159 H 74-106 mg/dL Lactic Acid Level 0.9 0.4-2.0 mmol/L Calcium Level 9.1 8.7-10.4 mg/dL Total Bilirubin 0.4 0.2-1.0 mg/dL Aspartate Amino Transferase (AST) 17 13-40 U/L Alanine Aminotransferase (ALT) 13 7-40 U/L Alkaline Phosphatase 126 H 46-116 U/L Total Protein 6.8 5.7-8.2 g/dL Albumin 3.8 3.2-4.8 g/dL [address] [address] Ph: [phone] DIAGNOSTIC IMAGING Diagnostic Imaging Report : [id number] Signed PATIENT: RYAN PORRAS I ACCT: [id number] UNIT: [id number] : 1960 LOC: ER ROOM / BED: / AGE / SEX: 65 / F ADM STATUS: REG ER SERVICE 30 ORDERING PHYSICIAN: AMANDA JAUREGUI DO PROCEDURE(s): PELUS - PELVIC REASON: pelivc pain ORDER NUMBER(s): [id number], ACCESSION NUMBER(s): [id number] EXAM: US PELVIC HISTORY: Pelvic pain COMPARISON: None TECHNIQUE: Transabdominal imaging was utilized. Grayscale and color doppler evaluation. Images were stored in the patient's permanent medical record. FINDINGS: Uterus and ovaries are not visualized. OTHER: No free fluid is identified. IMPRESSION: 1. Limited evaluation without visualization of the uterus and ovaries. ATED BY: CAIT MARTINEZ MD DICTATED DATE/TIME: 09/15/252008 SIGNED BY: CAIT MARTINEZ MD SIGNED DATE/TIME: 09/15/252008 CC: [place] [id number] Ph: [phone] DIAGNOSTIC IMAGING Diagnostic Imaging Report : [id number] Signed PATIENT: RYAN PORRAS I ACCT: [id number] UNIT: [id number] : 1960 LOC: ER ROOM / BED: / AGE / SEX: 65 / F ADM STATUS: REG ER SERVICE 30 ORDERING PHYSICIAN: AMANDA JAUREGUI DO PROCEDURE(s): ABPL - CT AB PEL WO CON-NO ORAL OR IV REASON: pelivc pain ORDER NUMBER(s): [id number], ACCESSION NUMBER(s): [id number] Exam: CT CT AB PEL WO CON-NO ORAL OR IV History: pelivc pain Comparison Study: US PELVIC on DOS: 09/15/25, CT CT AB PEL WO CON-NO ORAL OR IV on DOS: 09/03/25, XY KUB ABDOMEN SINGLE VIEW on DOS: 05/30/25, CT CT AB PEL WO CON-NO ORAL OR IV on DOS: 05/21/25 Technique: Multidetector spiral CT of the abdomen was performed from lung bases to pubic symphysis. Imaging was performed without IV contrast. Axial, coronal and sagittal multiplanar reformats were obtained from the axial data set by the technologist. Radiation Dose : 1. Abdomen/Pelvis: CTDIvol 19.3 mGy, DLP 991.48 mGy*cm. Findings: Evaluation of solid organs is limited due to lack of intravenous contrast use. Lung Bases: No acute or significant lung base finding. Normal heart size. No pleural or pericardial effusion. Liver: The liver is normal in size. No focal lesions. Gallbladder and Biliary Tree: Gallbladder is surgically absent. Spleen: Unremarkable Pancreas: The pancreas is grossly normal in appearance. Adrenal Glands: Unremarkable Kidneys: Kidneys are grossly normal without calculi or hydronephrosis. Bladder: Grossly unremarkable for degree of distention. Bowel: The stomach is grossly normal in appearance. Small bowel and colon are normal in caliber and distribution. The appendix is not visualized; however, no secondary findings of acute appendicitis identified. Ascites: Absent Lymphadenopathy: No mesenteric, retroperitoneal or periportal lymphadenopathy. Abdominal Wall and Mesentery: Unremarkable. Vasculature: The visualized abdominal aorta is normal in size and caliber. Evaluation of abdominal and pelvic vessels is limited due to lack of intravenous contrast. Pelvic Organs: Unremarkable Musculoskeletal: No aggressive focal bony lesions, acute fractures or dislocat ion. IMPRESSION: No acute abdominal or pelvic findings. Radiation optimization: All CT scans at this facility use at least one of these dose optimization techniques: automated exposure control mA and/or kV adjustment per patient size (includes targeted exams where dose is matched to clinical indication) or iterative reconstruction. ATED BY: LAZARA AMIN MD DICTATED DATE/TIME: 09/15/252023 SIGNED BY: LAZARA AMIN MD SIGNED DATE/TIME: 09/15/252023 CC: Time of 1ST Reevaluation: 19:33 Reevaluation 1ST: Unchanged Patient Education/Counseling: Diagnosis, Treatment Family Education/Counseling: Diagnosis, Treatment Comments MDM: patient presented with the above HPI.--pelvic pain----workup was initia lukas. patient was found with the above mentioned diagnosis. the following medications were ordered: please refer to order lists of meds and tests obtained by myself Dr. Jauregui. Patient ED course and VS have been stabilized. Patient has been reassessed in the ED and remained in a stable condition. Pertinent incidental findings were discussed with the patient and/or family. Patient/family voices understanding and is agreeable with plan. Patient has been observed in the ED adequate length of time to insure improvement/stability. Escalation of care considered: Consideration of escalation to observation or admission Patient is having nonspecific suprapubic abdominal pain/pelvic pain of unknown etiology. Patient might benefit from an OB Gyne consultation. Patient was ADMITTED to the medicine team for further evaluation and treatment of their presentation. All the reports of any imaging studies that were ordered by myself were reviewed by myself. Departure 1 Departure Time of Disposition: 23:41 Impression: Primary Impression: Pelvic pain Disposition: ADMITTED INPATIENT Admit to: Tele Condition: Guarded Discharged With: Self Critical Care Note Critical Care Time?: No I personally scribed for AMANDA JAUREGUI DO ([email or web address]) on 09/15/25 at 19:39. Electronically submitted by Jairo Zee ([email or web address]). I personally scribed for AMANDA JAUREGUI DO ([email or web address]) on 09/15/25 at 20:39. Electronically submitted by Jairo Zee ([email or web address]). AMANDA JAUREGUI DO Sep 15, 2025 19:39
[2025-09-15 19:51] LABS: Hematocrit 32.5 % (36.0-46.0); Hemoglobin 11.1 g/dL (12.2-16.2); Mean Corpuscular Hemoglobin 30.4 pg (28.0-32.0); Mean Corpuscular Volume 89.2 fL (80.0-100.0); Nucleated Red Blood Cells % 0.0 %
--- NOTE | 2025-09-15 20:12 | DVH ---
EXAM: US PELVIC HISTORY: Pelvic pain COMPARISON: None TECHNIQUE: Transabdominal imaging was utilized. Grayscale and color doppler evaluation. Images were stored in the patient's permanent medical record. FINDINGS: Uterus and ovaries are not visualized. OTHER: No free fluid is identified. IMPRESSION: 1. Limited evaluation without visualization of the uterus and ovaries.
[2025-09-15 20:13] LABS: Alanine Aminotransferase 13 U/L (7-40); Albumin 3.8 g/dL (3.2-4.8); Anion Gap 1 (5-15); BUN/Creatinine Ratio 13.0 (10.0-20.0); Bilirubin, Total 0.4 mg/dL (0.2-1.0); Blood Urea Nitrogen 14 mg/dL (9-23); Calcium 9.1 mg/dL (8.7-10.4); Sodium 143 mmol/L (136-145); Total Protein 6.8 g/dL (5.7-8.2)
[2025-09-15 20:19] LABS: Alkaline Phosphatase 126 U/L (46-116); Carbon Dioxide 32 mmol/L (20-31); Chloride 110 mmol/L (98-107); Glucose 159 mg/dL (74-106); Potassium 5.2 mmol/L (3.5-5.1)
--- NOTE | 2025-09-15 20:26 | DVH ---
Exam: CT CT AB PEL WO CON-NO ORAL OR IV History: peliv pain Comparison Study: US PELVIC on DOS: 09/15/25, CT CT AB PEL WO CON-NO ORAL OR IV on DOS: 09/03/25, XY KUB ABDOMEN SINGLE VIEW on DOS: 05/30/25, CT CT AB PEL WO CON-NO ORAL OR IV on DOS: 05/21/25 Technique: Multidetector spiral CT of the abdomen was performed from lung bases to pubic symphysis. Imaging was performed without IV contrast. Axial, coronal and sagittal multiplanar reformats were obtained from the axial data set by the technologist. Radiation Dose : 1. Abdomen/Pelvis: CTDIvol 19.3 mGy, DLP 991.48 mGy*cm. Findings: Evaluation of solid organs is limited due to lack of intravenous contrast use. Lung Bases: No acute or significant lung base finding. Normal heart size. No pleural or pericardial effusion. Liver: The liver is normal in size. No focal lesions. Gallbladder and Biliary Tree: Gallbladder is surgically absent. Spleen: Unremarkable Pancreas: The pancreas is grossly normal in appearance. Adrenal Glands: Unremarkable Kidneys: Kidneys are grossly normal without calculi or hydronephrosis. Bladder: Grossly unremarkable for degree of distention. Bowel: The stomach is grossly normal in appearance. Small bowel and colon are normal in caliber and distribution. The appendix is not visualized; however, no secondary findings of acute appendicitis identified. Ascites: Absent Lymphadenopathy: No mesenteric, retroperitoneal or periportal lymphadenopathy. Abdominal Wall and Mesentery: Unremarkable. Vasculature: The visualized abdominal aorta is normal in size and caliber. Evaluation of abdominal and pelvic vessels is limited due to lack of intravenous contrast. Pelvic Organs: Unremarkable Musculoskeletal: No aggressive focal bony lesions, acute fractures or dislocation. IMPRESSION: No acute abdominal or pelvic findings. Radiation optimization: All CT scans at this facility use at least one of these dose optimization techniques: automated exposure control mA and/or kV adjustment per patient size (includes targeted exams where dose is matched to clinical indication) or iterative reconstruction.
[2025-09-15] MEDS: HYDROcodone-ACET 5/325MG TAB PO ONE (23:45)
[2025-09-16] VITALS (7 sets, daily range): BP systolic 140–180; BP diastolic 76–77; PULSE 50–107; RESP 17–20; TEMP 96.9–98.4; O2SAT 95–97
[2025-09-16] MEDS: SODIUM ZIRCONIUM CYCL 10 GM PAK PO ONE (00:30)
[2025-09-16] MEDS ORDERED: DEXTROSE (50%) 50ML SYRG IV PRN (00:30)
[2025-09-16] MEDS ORDERED: ONDANSETRON HCL 4 MG/2 ML VIAL IV PRN (00:30)
[2025-09-16] MEDS ORDERED: ACETAMINOPHEN 325 MG TAB PO PRN (00:30)
[2025-09-16] MEDS ORDERED: HYDROcodone-ACET 5/325MG TAB PO PRN (00:30)
[2025-09-16] MEDS ORDERED: hydrALAZINE HCL 20 MG/ML VL IV PRN (00:30)
[2025-09-16] MEDS ORDERED: DOCUSATE SOD 100 MG CAP PO PRN (00:30)
[2025-09-16 02:29] LABS: Hematocrit 32.9 % (36.0-46.0); Hemoglobin 11.3 g/dL (12.2-16.2); Mean Corpuscular Hemoglobin 30.5 pg (28.0-32.0); Mean Corpuscular Volume 88.9 fL (80.0-100.0); Nucleated Red Blood Cells % 0.1 %
--- NOTE | 2025-09-16 02:32 | DVHHP2 ---
History of Present Illness Reason for Visit: Pelvic pain History of Present Illness The patient is a 65-year-old female with past medical history of asthma, diabetes mellitus, TIA, UTIs, and hypertension who presented to [facility] ED with complaint of pelvic pain. Patient reports that she has been experiencing lower abdominal pain for the past month, rating pain 8/10 numeric scale, constant, sharp in nature, constipation, having intermittent fever, vaginal spotting since yesterday, getting worse today that prompted this visit. Patient reports she has just finished a course of antibiotics 3 days ago. Patient was seen and evaluated in the ED, laboratory data shows WBC 5.0, hemoglobin 11.1, hematocrit 32.5, platelets 265, sodium 143, potassium 5.2, BUN 14, creatinine 1.08, GFR 57, glucose 159, calcium 9.1, total bilirubin 0.4, alkaline phos 126, blood pressure 168/89, heart rate 73, temperature 97.7 F, O2 saturation 97% on room air. Abdomen/pelvis CT showed no acute abdominal or pelvic findings. Please see medication orders section in the computer. On my assessment, patient denied chest pain, no headache, dizziness, diaphoresis, abdominal pain at this moment, diarrhea, nausea, vomiting, fever, no chills. Patient was admitted for further evaluation and medical management. Past Medical History Asthma, DM, HTN, TIA, UTI, Past Surgical History Back surgery, Cholecystectomy, Carpal tunnel surgery, Knee surgery, Shoulder surgery Family History Reviewed, noncontributory to the management of this case. Past Social History The patient lives at home, quit smoking greater than 1 year, denies alcohol or illicit drugs abuse. Review of Systems Constitutional: Yes: Weakness; No: Fever, Chills, Sweats, Malaise, Other Eyes: No: Pain, Vision change, Conjunctivae inflammation, Eyelid inflammation, Other, Redness ENT: No: Ear pain, Ear discharge, Nose pain, Nose discharge, Nose congestion, Mouth pain, Mouth swelling, Throat pain, Throat swelling, Other Respiratory: No: Cough, Dry, Shortness of breath, SOB with excertion, Wheezing, Hemoptysis, Pleuritic Pain, Sputum, Wheezing, Other Cardiovascular: No: Chest Pain, Palpitations, Orthopnea, Paroxysmal Noc. Dyspnea, Edema, Lt Headedness, Other Gastrointestinal: No: Nausea, Vomiting, Abdominal Pain, Diarrhea, Constipation, Melena, Hematochezia, Other Genitourinary: No Dysuria, No Frequency, No Incontinence, No Hematuria, No Retention; Other (Pelvic pain) Musculoskeletal: No: other, neck pain, shoulder pain, arm pain, back pain, hand pain, leg pain, foot pain Skin: No: Rash, Lesions, Jaundice, Bruising, Other Neurological: No: Weakness, Numbness, Incoordination, Change in speech, Confusion, Seizures, Other Allergies: Coded Allergies: NO KNOWN ALLERGIES (Unverified , 02/17/21) Medications Current Medications Medications Dose Ordered Sig/Chaitanya Route Start Time Stop Time Status Last Admin Dose Admin Lisinopril 10 mg DAILY PO 09/16/25 10:00 Hydralazine HCl 10 mg Q6HP PRN IV 09/16/25 00:30 Diagnostic Test (Pha) 1 strip ACHS 09/16/25 07:00 Insulin Human Regular HS SC 09/16/25 22:00 Insulin Human Regular AC SC 09/16/25 07:00 Dextrose 50 ml UD PRN IV 09/16/25 00:30 Sodium Chloride 10 ml Q8HR IV 09/16/25 06:00 Acetaminophen/ Hydrocodone Bitart 1 tab Q4HP PRN PO 09/16/25 00:30 Ondansetron HCl 4 mg Q4HP PRN IV 09/16/25 00:30 Docusate Sodium 100 mg BIDPRN PRN PO 09/16/25 00:30 Acetaminophen 650 mg Q6HP PRN PO 09/16/25 00:30 Exam Vital Signs Vital Signs Date Time Temp Pulse Resp B/P (MAP) Pulse Ox O2 Delivery O2 Flow Rate FiO2 09/15/25 18:17 97.9 73 18 168/89 97 97.9 General Appearance: Alert, Oriented X3, Cooperative, No acute distress HEENT: Atraumatic, PERRLA, EOMI, Mucous membr. moist/pink Respiratory: Normal air movement Cardiovascular: Regular rate, Normal S1, Normal S2, No murmurs Abdominal: Normal bowel sounds, Soft, No tenderness, No hepatospenomegaly, No masses Extremities: No clubbing, No cyanosis, No edema, Normal pulses, No tenderness/swelling Skin: No rashes, No breakdown, No significant lesion Neuro: Normal speech, Normal tone, Sensation intact, Cranial nerves 3-12 NL, Re flexes 2+, Other (Generalized weakness) Psych/Mental Status: Mental status NL, Mood NL Labs/Xrays Labs Test 09/16/25 02:00 09/15/25 19:38 Range/Units Eosinophils (%) (Auto) 3.7 0.0-7.0 % Eosinophils # (Auto) 0.2 0-0.8 10 ^3/uL Basophils # (Auto) 0 0-0.2 10 ^3/uL Nucleated Red Blood Cells 0.0 % Lactic Acid Level 0.9 0.4-2.0 mmol/L PATIENT: RYAN PORRAS IACCT: [id number] UNIT: [id number] : 1960 LOC: ER ROOM / BED: / AGE / SEX: 65 / F ADM STATUS: REG ER SERVICE 30 ORDERING PHYSICIAN: AMANDA JAUREGUI DO PROCEDURE(s): ABPL - CT AB PEL WO CON-NO ORAL OR IV REASON: pelivc pain ORDER NUMBER(s): [id number], ACCESSION NUMBER(s): [id number] Exam: CT CT AB PEL WO CON-NO ORAL OR IV History: pelivc pain Comparison Study: US PELVIC on DOS: 09/15/25, CT CT AB PEL WO CON-NO ORAL OR IV on DOS: 09/03/25, XY KUB ABDOMEN SINGLE VIEW on DOS: 05/30/25, CT CT AB PEL WO CON-NO ORAL OR IV on DOS: 05/21/25 Technique: Multidetector spiral CT of the abdomen was performed from lung bases to pubic symphysis. Imaging was performed without IV contrast. Axial, coronal and sagittal multiplanar reformats were obtained from the axial data set by the technologist. Radiation Dose: 1. Abdomen/Pelvis: CTDIvol 19.3 mGy, DLP 991.48 mGy*cm. Findings: Evaluation of solid organs is limited due to lack of intravenous contrast use. Lung Bases: No acute or significant lung base finding. Normal heart size. No pleural or pericardial effusion. Liver: The liver is normal in size. No focal lesions. Gallbladder and Biliary Tree: Gallbladder is surgically absent. Spleen: Unremarkable Pancreas: The pancreas is grossly normal in appearance. Adrenal Glands: Unremarkable Kidneys: Kidneys are grossly normal without calculi or hydronephrosis. Bladder: Grossly unremarkable for degree of distention. Bowel: The stomach is grossly normal in appearance. Small bowel and colon are normal in caliber and distribution. The appendix is not visualized; however, no secondary findings of acute appendicitis identified. Ascites: Absent Lymphadenopathy: No mesenteric, retroperitoneal or periportal lymphadenopathy. Abdominal Wall and Mesentery: Unremarkable. Vasculature: The visualized abdominal aorta is normal in size and caliber. Evaluation of abdominal and pelvic vessels is limited due to lack of intravenous contrast. Pelvic Organs: Unremarkable Musculoskeletal: No aggressive focal bony lesions, acute fractures or dislocation. IMPRESSION: No acute abdominal or pelvic findings. ORDERING PHYSICIAN: AMANDA JAUREGUI DO PROCEDURE(s): PELUS - PELVIC REASON: pelivc pain ORDER NUMBER(s): [id number], ACCESSION NUMBER(s): [id number] EXAM: US PELVIC HISTORY: Pelvic pain COMPARISON: None TECHNIQUE: Transabdominal imaging was utilized. Grayscale and color doppler evaluation. Images were stored in the patient's permanent medical record. FINDINGS: Uterus and ovaries are not visualized. OTHER: No free fluid is identified. IMPRESSION: 1. Limited evaluation without visualization of the uterus and ovaries. SEPSIS Sepsis Screen Date sepsis recognized/suspect: Sep 15, 2025 Time Sepsis recognized/suspect: 1819 Recent Procedure: No On Antibiotic Therapy: No Respiratory Rate >20: No Heart Rate >90: No Temp<36 C (96.8 F) or >38.3 C: No SBP <90 or MAP <65 mmHG: No New Acute Mental Status Change: No Is the patient on CPAP, BIPAP,: No Physician Orders Protective Signal Repairer Helper (09/15/25 ) Urinalysis (09/15/25 19:31) Ct Ab Pel Wo Con-No Oral Or Iv (09/15/25 19:31) Pelvic (09/15/25 19:31) Complete Blood Count (09/16/25 04:00) Comprehensive Metabolic Panel (09/16/25 04:00) Lisinopril Tablet (Zestril Tablet) (09/16/25 10:00) Hydralazine Injection (Apresoline Inject (09/16/25 00:30) Consistent Carb(Ccho)Diabetes (09/16/25 Breakfast) Glucose Blood (Accu-Chek Comfort Curve T (09/16/25 07:00) Insulin R (Human) (Insulin R) (09/16/25 22:00) Insulin R (Human) (Insulin R) (09/16/25 07:00) Dextrose 50% Syringe (09/16/25 00:30) Allergies (09/16/25 00:29) Code Status (09/16/25 00:29) Sodium Chloride Lock (Saline Lock Ns) (09/16/25 06:00) Oxygen Per Hour (09/16/25 00:29) Hydrocodone-Acet 5/325mg Tab (Tumtum 5/32 (09/16/25 00:30) Ondansetron Hcl (Zofran) (09/16/25 00:30) Docusate Sodium Capsule (Colace Capsule) (09/16/25 00:30) Complete Blood Count (09/17/25 04:00) Comprehensive Metabolic Panel (09/17/25 04:00) Condition: Serious (09/16/25 00:29) Acetaminophen Tablet (Tylenol Tablet) (09/16/25 00:30) Bedrest With Bathroom Privileg (09/16/25 00:29) Maintain Bed Rest (09/16/25 00:29) Sequential Compression Device (09/16/25 ) Laboratory Tests Test 09/15/25 19:38 09/16/25 02:00 Lactic Acid Level 0.9 mmol/L (0.4-2.0) White Blood Count 5.0 10^3/uL (4.4-10.8) Pending Assessment/Plan Assessment/Plan Pelvic pain Hypertension Hyperkalemia Diabetes mellitus with hyperglycemia Generalized weakness Plan 1. Admit to telemetry unit 2. Breathing treatment 3. Pain control management 4. Management of fluids and electrolytes 5. Consultation for hospitalist 6. Diagnostic tests abdomen/pelvis CT 7. DVT prophylaxis-on SCDs 8. Repeat labs CBC, CMP in a.m. 9. Continue with current medical management 10. Treatment plan discussed with patient and RN. Patient verbalized understanding. Plan discussed with: Patient, Other (RN) My Orders Orders - ALBINA ORTEGA DNP Procedure Category Date Status Time Complete Blood Count LAB 09/16/25 In Process 04:00 Comprehensive LAB 09/16/25 In Process Metabolic Panel 04:00 Lisinopril Tablet PHA 09/16/25 In Process (Zestril Tablet) 10:00 Hydralazine Injection PHA 09/16/25 In Process (Apresoline Inject 00:30 Consistent DIET 09/16/25 Transmitted Carb(Ccho)Diabetes Breakfast Glucose Blood PHA 09/16/25 In Process (Accu-Chek Comfort 07:00 Insulin R (Human) PHA 09/16/25 In Process (Insulin R) 22:00 Insulin R (Human) PHA 09/16/25 In Process (Insulin R) 07:00 Dextrose 50% Syringe PHA 09/16/25 In Process 00:30 Allergies LAURENT 09/16/25 In Process 00:29 Code Status CODE 09/16/25 Transmitted 00:29 Sodium Chloride Lock PHA 09/16/25 In Process (Saline Lock Ns) 06:00 Oxygen Per Hour RT 09/16/25 Transmitted 00:29 Hydrocodone-Acet PHA 09/16/25 In Process 5/325mg Tab (Tumtum 00:30 Ondansetron Hcl PHA 09/16/25 In Process (Zofran) 00:30 Docusate Sodium PHA 09/16/25 In Process Capsule (Colace 00:30 Complete Blood Count LAB 09/17/25 Verified 04:00 Comprehensive LAB 09/17/25 Verified Metabolic Panel 04:00 Condition: Serious LAURENT 09/16/25 In Process 00:29 Acetaminophen Tablet PHA 09/16/25 In Process (Tylenol Tablet) 00:30 Bedrest With Bathroom LAURENT 09/16/25 In Process Privileg 00:29 Maintain Bed Rest LAURENT 09/16/25 In Process 00:29 Sequential LAURENT 09/16/25 In Process Compression Device Problem List: (1) Pelvic pain (2) Hypertension (3) Hyperkalemia (4) Diabetes mellitus with hyperglycemia (5) Generalized weakness Date of Service: Sep 16, 2025 Billing Provider: ALBINA ORTEGA DNP Common Visit Codes: [id number] INP/OBS CARE (HIGH) ALBINA ORTEGA DNP Sep 16, 2025 02:32
[2025-09-16] MEDS ORDERED: MORPHINE SULFATE INJ 2 MG/ml SYRG IV PRN (02:45)
[2025-09-16] MEDS ORDERED: NITROGLYCERIN 0.4 MG SL TAB SL PRN (02:45)
[2025-09-16 03:12] LABS: Alanine Aminotransferase 12 U/L (7-40); Albumin 3.8 g/dL (3.2-4.8); Alkaline Phosphatase 113 U/L (46-116); Anion Gap 8 (5-15); BUN/Creatinine Ratio 15.3 (10.0-20.0); Blood Urea Nitrogen 15 mg/dL (9-23); Calcium 9.4 mg/dL (8.7-10.4); Carbon Dioxide 28 mmol/L (20-31); Chloride 106 mmol/L (98-107); Potassium 4.9 mmol/L (3.5-5.1); Sodium 142 mmol/L (136-145); Total Protein 6.7 g/dL (5.7-8.2)
[2025-09-16 03:13] LABS: Bilirubin, Total 0.5 mg/dL (0.2-1.0)
[2025-09-16 03:22] LABS: Glucose 160 mg/dL (74-106)
[2025-09-16] MEDS: SODIUM CHLOR 0.9% PF (SALINE LOCK) 10ML VIAL/SYR IV SCH (06:00)
[2025-09-16] MEDS: ACCU-CHEK COMFORT CURVE STRIP VI SCH (06:00)
[2025-09-16] MEDS: InsuLIN REG 1unit/0.01ml Soln (100units/ml) SC SCH (06:00)
[2025-09-16] MEDS: LISINOPRIL 5 MG TAB PO SCH (09:44)
[2025-09-16] MEDS ORDERED: NITR-87 PO (10:41)
--- NOTE | 2025-09-16 10:47 | DVHDS2 ---
Discharge Summary Date of Admission Sep 16, 2025 at 02:31 Date of Discharge: Sep 16, 2025 Admitting Diagnosis Pelvic Pain Labs/Diagnostic Data: Laboratory Results Test 09/16/25 10:20 09/16/25 05:52 09/16/25 02:00 09/15/25 19:38 POC Glucose 145 mg/dl (70-106) White Blood Count 5.1 10^3/uL (4.4-10.8) Red Blood Count 3.70 10^6/uL (4.0-5.20) Hemoglobin 11.3 g/dL (12.2-16.2) Hematocrit 32.9 % (36.0-46.0) Mean Corpuscular Volume 88.9 fL (80.0-100.0) Mean Corpuscular Hemoglobin 30.5 pg (28.0-32.0) Mean Corpuscular Hemoglobin Concent 34.3 g/dL (32.0-36.0) Red Cell Distribution Width 13.4 % (11.8-14.3) Platelet Count 267 10^3/uL (140-450) Mean Platelet Volume 7.5 fL (6.9-10.8) Neutrophils (%) (Auto) 49.1 % (37.0-80.0) Lymphocytes (%) (Auto) 41.8 % (10.0-50.0) Monocytes (%) (Auto) 4.6 % (0.0-12.0) Eosinophils (%) (Auto) 3.8 % (0.0-7.0) Basophils (%) (Auto) 0.7 % (0.0-2.0) Neutrophils # (Auto) 2.5 10 ^3/uL (1.6-8.6) Lymphocytes # (Auto) 2.1 10 ^3/uL (0.4-5.4) Monocytes # (Auto) 0.2 10 ^3/uL (0-1.3) Eosinophils # (Auto) 0.2 10 ^3/uL (0-0.8) Basophils # (Auto) 0 10 ^3/uL (0-0.2) Nucleated Red Blood Cells 0.1 % Sodium Level 142 mmol/L (136-145) Potassium Level 4.9 mmol/L (3.5-5.1) Chloride Level 106 mmol/L (98-107) Carbon Dioxide Level 28 mmol/L (20-31) Anion Gap 8 (5-15) Blood Urea Nitrogen 15 mg/dL (9-23) Creatinine 0.98 mg/dL (0.550-1.02) Glomerular Filtration Rate Calc 64 mL/min (>90) BUN/Creatinine Ratio 15.3 (10.0-20.0) Serum Glucose 160 mg/dL (74-106) Calcium Level 9.4 mg/dL (8.7-10.4) Total Bilirubin 0.5 mg/dL (0.2-1.0) Aspartate Amino Transferase (AST) 18 U/L (13-40) Alanine Aminotransferase (ALT) 12 U/L (7-40) Alkaline Phosphatase 113 U/L (46-116) Total Protein 6.7 g/dL (5.7-8.2) Albumin 3.8 g/dL (3.2-4.8) Lactic Acid Level 0.9 mmol/L (0.4-2.0) Other Laboratory Tests 09/16/25 02:00 Brief Hx & Hospital Course: Patient is a 65 year-old F with uncontrolled DM2, Chronic Pain who is admitted for unspecified pelvic pain. Patients Pelvic US is unremarkable. Patient will be discharged with Macrobid for possible UTI, patient will be seen by Dr. John on Wednesday at 8:45 for PAP SMEAR and further workup. Condition at Discharge: Poor Final Diagnosis/Problems List Pelvic Pain- Unspecified Possible UTI DM2 Chronic Pain Discharge Disposition: Home Discharge Instruct/Medications Diet: Consistent carbohydrate Activity: Light activity Follow Up/Referral: Dr John on Wednesday at 8:45AM for PAP SMEAR Medications: Macrobid Scheduled Lidocaine (Lidoderm 5% Topical Patch), 1 PATCH TOP DAILY Lisinopril (Lisinopril), 5 MG PO DAILY, (Reported) Nitrofurantoin Monohydrate Mac (Macrobid), 100 MG PO BID Sulfamethoxazole W/Trimethopri (Bactrim Ds Tablet), 1 TAB PO BID Miscellaneous Medications Hctz (Hydrochlorothiazide), 25 MG GT, (Reported) Hydralazine HCl (Hydralazine HCl), Unknown Dose PO, (Reported) Insulin Aspart (Novolog), 100 UNIT IJ, (Reported) Insulin Degludec (Tresiba), 100 UNIT SC, (Reported) Discontinued Medications Hydrocodone-Acetaminophen (Hydrocodone Bitartrate/AC 10-325 mg), 1 TAB PO, (Reported) Discharge Statement: "Patient was advised to return to the ER or call 911 if any headaches, dizziness, shortness of breath, chest pain, abdominal pain, bleeding, fevers, or worsening of medical condition. Patient was counseled about treatment plan, medications, possible side effects, patientverbalized understanding. All questions were answered to the best of my ability. This discharge took greater then 30 minutes in planning, reviewing documentation, counseling the patient, and discussing with other team members." ASSESSMENT ASSESSMENT Assessment Pelvic Pain- Unspecified Possible UTI Date of Service: Sep 16, 2025 Billing Provider: MARISOL OTTO MD Common Visit Codes: [id number] DISCH DAY <30MIN MARISOL OTTO MD Sep 16, 2025 10:47
[2025-09-16 10:58] LABS: Urine Protein, UAD 1+ (Negative)
[2025-09-16] MEDS: KETOROLAC TROMETH 30 MG/ML 1ML VIAL IM ONE (11:08)
[2025-09-16] MEDS ORDERED: InsuLIN REG 1unit/0.01ml Soln (100units/ml) SC SCH (22:00)
== END 2025-09-16 13:51 | disposition home or self-care (01) | DRG 690 ==
LOC: ER 18:15 → TELE-WESTW 09-16 02:31 → OVERFLOW 09-16 02:31 → TELE-WESTW 09-16 04:15
PROVIDERS: ADMIT Nurse Practitioner Family; ATTEND Nurse Practitioner Family
DX: N39.0 Urinary tract infection, site not specified (principal); E11.65 Type 2 diabetes mellitus with hyperglycemia; I10 Essential (primary) hypertension; J45.909 Unspecified asthma, uncomplicated; E87.5 Hyperkalemia; G89.29 Other chronic pain; Z90.49 Acquired absence of other specified parts of digestive tract; Z86.73 Personal history of transient ischemic attack (TIA), and cerebral infarction without residual deficits; Z87.891 Personal history of nicotine dependence
CPT/HCPCS: 36415; 74176; 76856; 80053; 81001; 82962; 83036; 83605; 85025; 86304; 87086; 87088; 87186; G0378; J1815; J1885